=== PATIENT | male | born 1930 | race Caucasian/White ===

== ENCOUNTER → 2016-07-23 | Outpatient (CLI) | payer MEDICARE, OTHER ==
[~2016-07-23] MED LIST: ASPI-586 PO; ATEN100T PO; ATOR10TA66 PO; CHOL20002 PO; DOCU100T7 PO; FINA5TAB6 PO; GLUC-219 PO; HYDR25TA4 PO; MULT-646 PO; OMG1KC PO; TRAM50TA2 PO
--- NOTE | 2016-07-23 15:34 | Diagnostic Imaging Report ---
AP, oblique, and lateral views of each knee. INDICATION: Bilateral knee pain. FINDINGS: The left knee demonstrates moderate narrowing of the joint space in the lateral compartment and tricompartment osteophyte formation. The lateral projection demonstrates prominent osteophytes. There is no significant effusion. No acute fracture or dislocation. No radiopaque foreign body. The right knee demonstrates mild chondrocalcinosis. There is mild narrowing of the joint space in the medial compartment. Less prominent osteophyte formation is seen overall in the right knee compared to the left. IMPRESSION: Bilateral degenerative changes more prominent in the left knee particularly at the lateral and patellofemoral compartments. Findings of chondrocalcinosis in the right knee. Dictated by: Dictated on workstation # [id number]
--- NOTE | 2016-07-23 16:01 | Diagnostic Imaging Report ---
INDICATION: Bilateral knee and hip pain. EXAM: AP pelvis and bilateral hip radiographs. FINDINGS: No fracture, dislocation, or radiopaque foreign body. Severe degenerative changes of the hip joints seen. Advanced degenerative changes in the lower lumbar spine discs. The SI joints demonstrate mild degenerative changes. The right hip demonstrates near complete loss of cartilage with [id number] appearance with subchondral sclerosis and lucency secondary to advanced degenerative changes with possible superimposed avascular necrosis. Similar findings in the left hip seen. No acute fracture, dislocation, or radiopaque foreign body noted. 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 Dictated by: Dictated on workstation # [id number]
== END ==
LOC: RAD 09:31
PROVIDERS: ATTEND Internal Medicine
DX: M17.0 Bilateral primary osteoarthritis of knee (principal); M11.261 Other chondrocalcinosis, right knee
CPT/HCPCS: 73523

== ENCOUNTER → 2016-08-02 | Outpatient (CLI) | payer MEDICARE, OTHER ==
[~2016-08-02] MED LIST changes: +GADOBUTROL 10 MMOL/10 ML (GADAVIST) VIAL IV ONE
--- NOTE | 2016-08-02 17:28 | Diagnostic Imaging Report ---
PROCEDURE: MRI lumbar spine with and without contrast. TECHNIQUE: Multiplanar, multisequence MRI of the lumbar spine was performed with and without contrast. INDICATION: Chronic low back pain with bilateral knee pain. No known traumatic injury or history of surgery or cancer. COMPARISON: No comparison is available. FINDINGS: There is a dextroscoliotic curvature demonstrated of the thoracic spine with its apex at approximately the L3 level. The sagittal acquisition demonstrates slight retrolisthesis of L5 on S1 and anterolisthesis of L4 on 5. Advanced multilevel degenerative endplate changes present throughout the lower thoracic and lumbar spine with advanced disc space height loss at all levels. There is no marrow edema to suggest an acute osseous injury or underlying neoplastic lesion. Multilevel facet arthropathy is also present. There are advanced chronic degenerative endplate changes. The lower thoracic cord demonstrates no signal abnormality or abnormal expansion. The conus terminates at a normal level. T12-L1 demonstrates mild disc bulging with mild narrowing of the central canal. There is no significant left lateral recess stenosis. There is mild narrowing of the right neural foramen. At L1-2, diffuse disc bulge, facet arthropathy and ligamentous thickening result in moderate to severe central canal and lateral recess stenosis. There is moderate bilateral foraminal stenosis. At the L2-3 level, diffuse disc bulging, endplate spurring, facet arthropathy and ligamentous thickening result in severe central canal and lateral recess stenosis. There is mild right and moderate to severe left neural foraminal stenosis. At the L3-4 level, diffuse disc bulging, facet arthropathy and ligamentous thickening result in moderate central canal stenosis and severe narrowing of the lateral recesses. There is moderate to severe bilateral foraminal stenosis. At the L4-5 level, there is diffuse disc bulging as well as advanced facet arthropathy and ligamentous thickening with severe central canal stenosis and severe narrowing of both lateral recesses. There is moderate to severe right and moderate left neural foraminal stenosis. At the L5-S1 level, there is advanced facet arthropathy and ligamentous thickening. There is diffuse disc bulging. There is no significant central canal stenosis but there is moderate to severe narrowing of the lateral recesses. There is moderate left and moderate to severe right neural foraminal stenosis. There is no focal paraspinal soft tissue abnormality. Kidneys appear nonobstructed. There are simple appearing bilateral renal cysts. The aorta appears normal in caliber. IMPRESSION: 1. Dextroscoliosis with multiple levels of spinal listhesis. No acute osseous abnormality is demonstrated. The vertebral body heights appear maintained. 2. Advanced multilevel degenerative disc disease and facet arthropathy with advanced chronic degenerative endplate changes. 3. Multiple levels of high-grade central canal, lateral recess or neural foraminal stenosis are demonstrated throughout the lumbar spine. These are each described above level by level. Dictated by: Dictated on workstation # [id number]
== END ==
LOC: RAD 15:51
PROVIDERS: ATTEND Nurse Practitioner
DX: M48.06 Spinal stenosis, lumbar region (principal); M51.36 Other intervertebral disc degeneration, lumbar region
CPT/HCPCS: 72158

== ENCOUNTER 2016-08-17 13:11 | Inpatient (IN) | payer MEDICARE ==
[~2016-08-17] VITALS: Ht 188 cm; Wt 79.5 kg
[2016-08-17 13:37] LABS: BASOPHILS % (AUTO) 0 % (0-10); EOSINOPHILS # (AUTO) 0.1 10^3/uL (0.0-0.3); EOSINOPHILS % (AUTO) 1 % (0-10); LYMPHOCYTES # (AUTO) 0.6 X 10^3 (1.0-4.0); LYMPHOCYTES % (AUTO) 6 % (12-44); MEAN CORPUSCULAR HEMOGLOBIN 33 PG (25-34); MEAN CORPUSCULAR HGB CONC 35 G/DL (32-36); MEAN CORPUSCULAR VOLUME 94 FL (80-99); MEAN PLATELET VOLUME 8.7 FL (7.4-10.4); MONOCYTES # (AUTO) 1.3 X 10^3 (0.0-1.0); MONOCYTES % (AUTO) 13 % (0-12); NEUTROPHILS # (AUTO) 7.9 X 10^3 (1.8-7.8); NEUTROPHILS % (AUTO) 80 % (42-75); PLATELET COUNT 353 10^3/uL (130-400); RED BLOOD COUNT 3.52 10^6/uL (4.35-5.85); RED CELL DISTRIBUTION WIDTH 11.6 % (10.0-14.5); WHITE BLOOD COUNT 9.8 10^3/uL (4.3-11.0)
[2016-08-17] MEDS ORDERED: ATEN100T PO (13:38)
[2016-08-17] MEDS ORDERED: ATOR10TA66 PO (13:38)
[2016-08-17] MEDS ORDERED: FINA5TAB6 PO (13:38)
[2016-08-17] MEDS ORDERED: HYDR25TA4 PO (13:38)
[2016-08-17] MEDS ORDERED: TRAM50TA2 PO (13:38)
--- NOTE | 2016-08-17 13:39 | ED General ---
General Chief Complaint: Altered Mental Status Stated Complaint: CONFUSION Nursing Triage Note: PT TO ED ROOM 2 W FAMILY STATES PT HAS BEEN HAVING PERIODS OF CONFUSION, SMELLS OF URINE, HAS GONE [place], FROM DRIVING TO NOT BEING ABLE TO CARE FOR SELF Nursing Sepsis Screen: No Definite Risk Source of Information: Patient, Family Exam Limitations: No Limitations History of Present Illness Time Seen by Provider: 13:37 Initial Comments 85-year-old male patient presents to the emergency Department with reports of increased confusion over the last 3 weeks. 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 Patient over the last 3 weeks has had a progressive decline. Now unable to care for himself. Needs assistance to transfer. Family reports they found him twice playing on the floor naked in his house with patient under where of how long he had been there how he had gotten there. They've noted that he has been more confused over the last 3 weeks as well. Patient has seen Dr. Zelaya the last 3 weeks for low back pain with MRI and referral to Dr. Pierce. Patient is supposed to be seeing Dr. Pierce for epidural injection as an outpatient. Denies known falls , headache, dizziness, chest pain, shortness of air. Patient was constipated from tramadol, but took several laxatives causing diarrhea. Patient was started on Neurontin last Friday, but son states patient only took a few days before stopping it. Family felt this was may be causing some of his confusion. Patient today complains of bilateral hip/groin pain and knee pain. Timing/Duration: Other (3 week onset, worse over the last week) Modifying Factors: worse with Movement (left hip pain worse with movement) Allergies and Home Medications Allergies Coded Allergies: No Known Drug Allergies (Unverified , 08/17/16) Home Medications Aspirin 81 Mg Tablet., 81 MG PO DAILY, (Reported) Atenolol 100 Mg Tablet, 100 MG PO DAILY, (Reported) Atorvastatin Calcium 10 Mg Tablet, 5 MG PO DAILY, (Reported) TAKES 1/2 PILL Cholecalciferol (Vitamin D3) 2,000 Unit Capsule, 2,000 UNIT PO DAILY, (Reported) Docusate Sodium 100 Mg Tablet, 100 MG PO TID, (Reported) Finasteride 5 Mg Tablet, 5 MG PO DAILY, (Reported) Glucosamine/D3/Boswellia Ute 1 Each Tablet, 2 EACH PO BID, (Reported) Hydrochlorothiazide 25 Mg Tablet, 25 MG PO DAILY, (Reported) Multivits,Th W-Fe,Other Min 1 Each Tablet, 2 EACH PO DAILY, (Reported) [place] 3 Polyunsat Fatty Acids 1,000 Mg Cap, 1,000 MG PO DAILY, (Reported) Tramadol HCl 50 Mg Tablet, 100 MG PO Q6H PRN for PAIN, #60 (Reported) TAKES 2 (50MG) TABS Constitutional: see HPI, No chills, No diaphoresis, No dizziness, No fever, No malaise, weakness EENTM: no symptoms reported Respiratory: No cough, No short of breath Cardiovascular: No chest pain, edema, No palpitations, No syncope Gastrointestinal: see HPI, No abdominal pain, No nausea, No vomiting Genitourinary: No decreased output, No dysuria, No frequency, No hematuria, pain (bilateral groin pain with left greater than right) Musculoskeletal: see HPI, back pain, joint pain, No joint swelling, No neck pain Skin: no symptoms reported Psychiatric/Neurological: See HPI, Denies Headache, Denies Numbness, Denies Paresthesia, Denies Seizure, Denies Tingling, Denies Weakness All Other Systems Reviewed Negative Unless Noted: Yes (Negative excepted noted.) Past Cunxohl-Oqllnk-Nrawex Hx Patient Social History Recent Foreign Travel: No Contact w/Someone Who Travel: No Recent Infectious Disease Expo: No Respiratory Hx Respiratory Disorders: No Cardiovascular Hx Cardiac Disorders: Yes Cardiac Disorders: High Cholesterol, Hypertension Neurological Hx Neurological Disorders: No Genitourinary Hx Genitourinary Disorders: No Gastrointestinal Hx Gastrointestinal Disorders: No Musculoskeletal Hx Musculoskeletal Disorders: Yes Musculoskeletal Disorders: Chronic Back Pain Endocrine Hx Endocrine Disorders: No HEENT HX ENT Disorders: No Reviewed Nursing Assessment Reviewed/Agree w Nursing PMH: Yes Family Medical History Significant Family History: No Pertinent Family Hx Physical Exam Vital Signs Vital Sign - Last 12Hours 08/17/16 08/17/16 13:15 18:00 Temp 97.4 Pulse 74 Resp 18 B/P (MAP) 140/69 Pulse Ox 96 O2 Delivery Room Air Capillary Refill : Less Than 3 Seconds General Appearance: No Apparent Distress, Chronically ill Eyes: Bilateral Eye EOMI, Bilateral Eye Normal Inspection, Bilateral Eye PERRL HEENT: PERRL/EOMI, Pharynx Normal Neck: Normal Inspection, Supple Respiratory: Lungs Clear, Normal Breath Sounds, No Respiratory Distress Cardiovascular: Regular Rate, Rhythm, No Murmur Gastrointestinal: Normal Bowel Sounds, No Organomegaly, Non Tender, Soft, No Distended Back: Normal Inspection Extremity: Normal Capillary Refill, No Calf Tenderness, Pedal Edema (2+ pedal edema to the mid leg bilaterally.) Neurologic/Psychiatric: Alert, Oriented x3 ((family reports patient has been very confused. patient is Oriented x4 on exam).), No Motor/Sensory Deficits, Normal Mood/Affect, hotel associate II-XII Norm as Tested Skin: Normal Color, Warm/Dry Focused Exam Lactic Acid Level Progress/Results/Core Measures Results/Orders Lab Results Laboratory Tests Test 08/17/16 13:28 08/17/16 14:42 Range/Units White Blood Count 9.8 4.3-11.0 10^3/uL Red Blood Count 3.52 L 4.35-5.85 10^6/uL Hemoglobin 11.6 L 13.3-17.7 G/DL Hematocrit 33 L 40-54 % Mean Corpuscular Volume 94 80-99 FL Mean Corpuscular Hemoglobin 33 25-34 PG Mean Corpuscular Hemoglobin Concent 35 32-36 G/DL Red Cell Distribution Width 11.6 10.0-14.5 % Platelet Count 353 130-400 10^3/uL Mean Platelet Volume 8.7 7.4-10.4 FL Neutrophils (%) (Auto) 80 H 42-75 % Lymphocytes (%) (Auto) 6 L 12-44 % Monocytes (%) (Auto) 13 H 0-12 % Eosinophils (%) (Auto) 1 0-10 % Basophils (%) (Auto) 0 0-10 % Neutrophils # (Auto) 7.9 H 1.8-7.8 X 10^3 Lymphocytes # (Auto) 0.6 L 1.0-4.0 X 10^3 Monocytes # (Auto) 1.3 H 0.0-1.0 X 10^3 Eosinophils # (Auto) 0.1 0.0-0.3 10^3/uL Basophils # (Auto) 0.0 0.0-0.1 10^3/uL Neutrophils % (Manual) 77 % Lymphocytes % (Manual) 10 % Monocytes % (Manual) 12 % Eosinophils % (Manual) 1 % Blood Morphology Comment NORMAL Prothrombin Time 15.0 H 12.2-14.7 SEC INR Comment 1.2 0.8-1.4 Activated Partial Thromboplast Time 36 H 24-35 SEC Sodium Level 121 *L 135-145 MMOL/L Potassium Level 3.2 L 3.6-5.0 MMOL/L Chloride Level 86 L 98-107 MMOL/L Carbon Dioxide Level 23 21-32 MMOL/L Anion Gap 12 5-14 MMOL/L Blood Urea Nitrogen 14 7-18 MG/DL Creatinine 0.68 0.60-1.30 MG/DL Estimat Glomerular Filtration Rate > 60 BUN/Creatinine Ratio 21 Glucose Level 113 H 70-105 MG/DL Lactic Acid Level 0.95 0.50-2.00 MMOL/L Calcium Level 8.4 L 8.5-10.1 MG/DL Magnesium Level 1.5 L 1.8-2.4 MG/DL Total Bilirubin 1.3 H 0.1-1.0 MG/DL Aspartate Amino Transf (AST/SGOT) 39 H 5-34 U/L Alanine Aminotransferase (ALT/SGPT) 25 0-55 U/L Alkaline Phosphatase 87 40-136 U/L Troponin I < 0.30 <0.30 NG/ML Total Protein 6.2 L 6.4-8.2 G/DL Albumin 3.2 3.2-4.5 G/DL TSH [place] Testing 0.71 0.35-4.94 UIU/ML Urine Color YELLOW Urine Clarity SLIGHTLY CLOUDY Urine pH 7 5-9 Urine Specific [place] 1.010 L 1.016-1.022 Urine Protein NEGATIVE NEGATIVE Urine Glucose (UA) NEGATIVE NEGATIVE Urine Ketones NEGATIVE NEGATIVE Urine Nitrite NEGATIVE NEGATIVE Urine Bilirubin NEGATIVE NEGATIVE Urine Urobilinogen NORMAL NORMAL MG/DL Urine Leukocyte Esterase NEGATIVE NEGATIVE Urine RBC (Auto) 1+ H NEGATIVE Urine RBC 2-5 H /HPF Urine WBC NONE /HPF Urine Squamous Epithelial Cells RARE /HPF Urine Crystals NONE /LPF Urine Bacteria NONE /HPF Urine Casts NONE /LPF Urine Mucus NEGATIVE /LPF Urine Culture Indicated NO My Orders Orders - PEPE MOSELEY Cbc With Automated Diff (08/17/16 13:14) Comprehensive Metabolic Panel (08/17/16 13:14) Protime With Inr (08/17/16 13:14) Partial Thromboplastin Time (08/17/16 13:14) Thyroid Analyzer (08/17/16 13:14) Troponin I (08/17/16 13:14) Ua Culture If Indicated (08/17/16 13:14) Saline Lock/Iv-Start (08/17/16 13:14) Ekg Tracing (08/17/16 13:14) Monitor-Rhythm Ecg Trace Only (08/17/16 13:14) Ct Head Wo (08/17/16 13:14) Chest 1 View, Ap/Pa Only (08/17/16 13:14) Magnesium (08/17/16 13:14) Lactic Acid Analyzer (08/17/16 13:32) Blood Culture (08/17/16 13:32) Pelvis (08/17/16 13:40) Femur, Bilateral, 2 Views (08/17/16 13:40) Manual Differential (08/17/16 13:28) Ns Iv 1000 Ml (Sodium Chloride 0.9%) (08/17/16 14:10) Potassium Cl 10meq/50ml Ivpb (Kcl 10 Meq (08/17/16 14:15) Magnesium 1 Gm/100 Ml Ivpb (Magnesium [place] (08/17/16 14:15) Fentanyl Injection (Sublimaze Injection (08/17/16 14:46) Morphine Injection (Morphine Injection (08/17/16 15:16) Ct Chest W (08/17/16 15:37) Iohexol Injection (Omnipaque 350 Mg/Ml 1 (08/17/16 15:45) Ns (Ivpb) (Sodium Chloride 0.9% Ivpb Bag (08/17/16 15:45) Medications Given in ED Current Medications Medications Dose Ordered Sig/Matteo Route Start Time Stop Time Status Last Admin Dose Admin Iohexol 100 ml ONCE ONCE IV 08/17/16 15:45 08/17/16 15:46 DC 08/17/16 16:02 75 ML Magnesium Sulfate/ Dextrose 100 ml @ 100 mls/hr ONCE ONCE IV 08/17/16 14:15 08/17/16 15:14 DC 08/17/16 14:36 100 MLS/HR Potassium Chloride 50 ml @ 50 mls/hr ONCE ONCE IV 08/17/16 14:15 08/17/16 15:14 DC 08/17/16 14:33 50 MLS/HR Sodium Chloride 100 ml ONCE ONCE IV 08/17/16 15:45 08/17/16 15:46 DC 08/17/16 16:03 80 ML Sodium Chloride 1,000 ml @ 0 mls/hr Q0M ONCE IV 08/17/16 14:10 08/17/16 14:12 DC 08/17/16 14:31 1,000 MLS/HR Vital Signs/I&O Vital Sign - Last 12Hours 08/17/16 08/17/16 08/17/16 08/17/16 13:15 17:53 18:00 20:00 Temp 97.4 97.4 97.8 Pulse 74 70 65 70 Resp 18 18 18 18 B/P (MAP) 140/69 121/60 116/54 Pulse Ox 96 97 96 97 O2 Delivery Room Air Room Air 08/17/16 08/17/16 20:25 21:00 Pulse 60 O2 Delivery Room Air Blood Pressure Mean: 92 ECG Initial ECG Impression Date: Aug 17, 2016 Initial ECG Impression Time: 13:22 Initial ECG Rate: 76 Comment sinus rhythm with LBBB. ECG reviewed and discussed with Dr. Valentin. Diagnostic Imaging Diagonstic Imaging: CT Plain Films/CT/US/NM/MRI: head Comments FINDINGS: There is global cerebral volume loss present which is appropriate for age. There are advanced background chronic microvascular ischemic changes present within the white matter. There is also very low density within the right anterior limb of the internal capsule suggesting a previous infarct. Its low density would suggest that this is likely chronic. There is no territorial loss of zimmer-white differentiation evident. There is no mass effect. There is no hydrocephalus. There is no evidence of an abnormal extra-axial fluid collection. Basilar cisterns patent. The posterior fossa demonstrates no acute abnormalities. There are atherosclerotic calcifications of the vessels at the skull base. Mastoids clear. Paranasal sinuses clear. Orbital contents unremarkable. IMPRESSION: 1. Advanced global volume loss with background chronic microvascular changes within the white matter. 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 There is no territorial loss of zimmer-white differentiation demonstrated. If continued clinical concern, further evaluation could be performed with MRI if clinically applicable. Dictated on workstation # [id number] Reviewed: Reviewed by Me (radiology report reviewed by me) Diagonstic Imaging: Xray Plain Films/CT/US/NM/MRI: chest Comments FINDINGS: Single frontal view of the chest is obtained. Heart size is normal. The pulmonary vessels appear unremarkable. There is no pneumothorax or pleural fluid. There are somewhat masslike opacity seen lateral to the taqueria bilaterally which could represent airspace disease although ill-defined nodules could have this appearance as well. The lungs are otherwise clear. IMPRESSION: There are ill-defined somewhat masslike opacities lateral to the taqueria bilaterally. This could represent pneumonia however, is nonspecific. In the absence of acute infectious symptoms CT scan might be considered to exclude underlying neoplasm. Dictated by: Dictated on workstation # [id number] Reviewed: Reviewed by Me (radiology report reviewed by me) Diagonstic Imaging: Xray Plain Films/CT/US/NM/MRI: pelvis Comments FINDINGS: Single frontal view of the pelvis is obtained. As seen on the prior study, there are severe advanced degenerative changes of both hips with complete joint space loss, considerable subchondral sclerosis and cystic change bilaterally. There is some flattening of the femoral head on the left which is increased from the prior study concerning for an additional element of osteonecrosis here. Sacroiliac joints appear unremarkable. No acute fracture seen. There are degenerative changes in the spine. IMPRESSION: Severe degenerative changes of both hips persist with some new flattening of the left femoral head concerning for worsening osteonecrosis. No acute fracture is seen. Dictated by: Dictated on workstation # [id number] Reviewed: Reviewed by Me (radiology report reviewed by me) Diagonstic Imaging: Xray Plain Films/CT/US/NM/MRI: other (bilateral femur) Comments FINDINGS: 2 views of both femurs are obtained. There are severe degenerative changes of the hips bilaterally. No acute fracture or malalignment is seen. No osseous destructive process is seen. There is mild degenerative spurring of the patellofemoral joint bilaterally. IMPRESSION: Severe degenerative changes of the hip and mild degenerative changes of the knee. No acute osseous abnormality is suspected. Dictated by: Dictated on workstation # [id number] Diagonstic Imaging: CT Plain Films/CT/US/NM/MRI: chest Comments CT chest with chronic interstitial changes without evidence of mass or infiltrate. No acute cardiopulmonary abnormality noted. Right renal lesion noted with recommendations for outpatient renal ultrasound or CT scan abdomen/ pelvis. Reviewed: Discussed w/Radiologist (discussed with Dr. Madelyn Stuart) Departure Communication Time/Spoke to Admitting Phy: 16:[address] Phillips accepts patient to his internal medicine service for IVF, electrolyte replacement and further evaluation. Progress Notes Patient's family evaluated. All laboratory findings and diagnostic study findings were discussed with the patient and family. CT scan of the chest was obtained at the recommendation of the radiologist to further evaluate the taqueria for mass versus infiltrate. No acute cardiopulmonary findings were noted. Plan for admission was discussed with the patient and family. All voiced understanding. The treatment plan. Case discussed with Dr. Valentin, he agrees with the plan of care. Impression Impression: Primary Impression: Acute hyponatremia Additional Impressions: Hypokalemia Hypomagnesemia Altered mental status Qualified Codes: R41.82 - Altered mental status, unspecified Left hip pain Disposition: ADMITTED INPATIENT Condition: Stable Decision to Admit Reason: Admit from ER (General) Decision to Admit/Date: Aug 17, 2016 Time/Decision to Admit Time: 16:43 Departure-Patient Inst. Referrals: RUSTY STUART MD (PCP/Family) Primary Care Physician PEPE MOSELEY Aug 17, 2016 13:38
[2016-08-17 13:53] LABS: INR 1.2 (0.8-1.4)
[2016-08-17 13:54] LABS: EOSINOPHILS % (MANUAL) 1 %; LYMPHOCYTES % (MANUAL) 10 %; NEUTROPHILS % (MANUAL) 77 %
[2016-08-17 14:01] LABS: ALANINE AMINOTRANSFERASE 25 U/L (0-55); ALBUMIN 3.2 G/DL (3.2-4.5); ANION GAP 12 MMOL/L (5-14); ASPARTATE AMINO TRANSFERASE 39 U/L (5-34); BILIRUBIN,TOTAL 1.3 MG/DL (0.1-1.0); BLOOD UREA NITROGEN 14 MG/DL (7-18); BUN/CREATININE RATIO 21; CALCIUM 8.4 MG/DL (8.5-10.1); CARBON DIOXIDE 23 MMOL/L (21-32); CHLORIDE 86 MMOL/L (98-107); CREATININE SERUM 0.68 MG/DL (0.60-1.30); GFR ESTIMATED > 60; GLUCOSE 113 MG/DL (70-105); MAGNESIUM 1.5 MG/DL (1.8-2.4); POTASSIUM 3.2 MMOL/L (3.6-5.0); TOTAL PROTEIN 6.2 G/DL (6.4-8.2)
[2016-08-17 14:09] LABS: SODIUM 121 MMOL/L (135-145)
[2016-08-17] MEDS ORDERED: NS IV 1000 ML 1,000 ML IV ONE (14:10)
[2016-08-17] MEDS ORDERED: MAGNESIUM 1 GM/100 ML IVPB 100 ML IV ONE (14:15)
[2016-08-17] MEDS ORDERED: POTASSIUM CL 10MEQ/50ML IVPB 50 ML IV ONE (14:15)
[2016-08-17 14:21] LABS: TROPONIN I < 0.30 NG/ML (<0.30)
--- NOTE | 2016-08-17 14:40 | Diagnostic Imaging Report ---
INDICATION: Pain. COMPARISON: None FINDINGS: Single frontal view of the chest is obtained. Heart size is normal. The pulmonary vessels appear unremarkable. There is no pneumothorax or pleural fluid. There are somewhat masslike opacity seen lateral to the [place]qu[place] bilaterally which could represent airspace disease although ill-defined nodules could have this appearance as well. The lungs are otherwise clear. IMPRESSION: There are ill-defined somewhat masslike opacities lateral to the taqueria bilaterally. This could represent pneumonia however, is nonspecific. In the absence of acute infectious symptoms CT scan might be considered to exclude underlying neoplasm. Dictated by: Dictated on workstation # [id number]
--- NOTE | 2016-08-17 14:44 | Diagnostic Imaging Report ---
INDICATION: Pain. COMPARISON: None FINDINGS: 2 views of both femurs are obtained. There are severe degenerative changes of the hips bilaterally. No acute fracture or malalignment is seen. No osseous destructive process is seen. There is mild degenerative spurring of the patellofemoral joint bilaterally. IMPRESSION: Severe degenerative changes of the hip and mild degenerative changes of the knee. No acute osseous abnormality is suspected. Dictated by: Dictated on workstation # [id number]
[2016-08-17] MEDS ORDERED: fentaNYL INJECTION 100 MCG/2 ML AMP IVP STA (14:46)
[2016-08-17 14:57] LABS: BILIRUBIN,URINE NEGATIVE (NEGATIVE); KETONES,URINE NEGATIVE (NEGATIVE); LEUKOCYTE ESTERASE ,URINE NEGATIVE (NEGATIVE); NITRITE,URINE NEGATIVE (NEGATIVE); PH,URINE 7 (5-9); PROTEIN,URINE NEGATIVE (NEGATIVE); UROBILINOGEN,URINE NORMAL (NORMAL)
[2016-08-17 15:11] LABS: SQUAMOUS EPITHELIAL CELL,UR RARE /HPF
[2016-08-17] MEDS ORDERED: morphine INJ 10 MG/ML 1ML (SYR OR VIAL) IVP STA (15:16)
[2016-08-17] MEDS ORDERED: IOHEXOL 350 MG/ML 100 ML (OMNIPAQUE 350) VIAL IV ONE (15:45)
[2016-08-17] MEDS ORDERED: NS 100 ML (IVPB) BAG IV ONE (15:45)
--- NOTE | 2016-08-17 16:13 | Diagnostic Imaging Report ---
PROCEDURE: CT head without contrast. TECHNIQUE: Multiple contiguous axial images were obtained through the brain without the use of intravenous contrast. INDICATION: Confusion. FINDINGS: There is global cerebral volume loss present which is appropriate for age. There are advanced background chronic microvascular ischemic changes present within the white matter. There is also very low density within the right anterior limb of the internal capsule suggesting a previous infarct. Its low density would suggest that this is likely chronic. There is no territorial loss of zimmer-white differentiation evident. There is no mass effect. There is no hydrocephalus. There is no evidence of an abnormal extra-axial fluid collection. Basilar cisterns patent. The posterior fossa demonstrates no acute abnormalities. There are atherosclerotic calcifications of the vessels at the skull base. Mastoids clear. Paranasal sinuses clear. Orbital contents unremarkable. IMPRESSION: 1. Advanced global volume loss with background chronic microvascular changes within the white matter. 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 There is no territorial loss of zimmer-white differentiation demonstrated. If continued clinical concern, further evaluation could be performed with MRI if clinically applicable. Dictated by: Dictated on workstation # [id number]
--- NOTE | 2016-08-17 16:19 | Diagnostic Imaging Report ---
INDICATION: Pain. COMPARISON: 07/23/2016. FINDINGS: Single frontal view of the pelvis is obtained. As seen on the prior study, there are severe advanced degenerative changes of both hips with complete joint space loss, considerable subchondral sclerosis and cystic change bilaterally. There is some flattening of the femoral head on the left which is increased from the prior study concerning for an additional element of osteonecrosis here. Sacroiliac joints appear unremarkable. No acute fracture seen. There are degenerative changes in the spine. IMPRESSION: Severe degenerative changes of both hips persist with some new flattening of the left femoral head concerning for worsening osteonecrosis. No acute fracture is seen. Dictated by: Dictated on workstation # [id number]
--- NOTE | 2016-08-17 17:29 | Diagnostic Imaging Report ---
PROCEDURE: CT chest with contrast only. TECHNIQUE: Multiple contiguous axial images were obtained through the chest after administration of intravenous contrast. INDICATION: Possible pneumonia. Abnormal chest x-ray. COMPARISON: Chest x-ray from earlier the same date. FINDINGS: There are mild subpleural reticular interstitial changes in the lung bases and mild bilateral basilar atelectasis. No focal pneumonia is suspected. The densities seen on recent chest x-ray are likely due to some calcified pleural plaquing which is present most pronounced anteriorly in the chest. No pleural effusion or pneumothorax. No focal pneumonia is suspected. No adenopathy is seen. There is fluid within a slightly distended esophagus. There are cysts seen in the kidneys. On the right, there is an indeterminate 3.5-cm probably septated cyst in the posterior medial cortex which is indeterminate. Further evaluation with renal ultrasound or unenhanced and enhanced CT of the abdomen is recommended although this could be performed on a nonemergent basis. There are degenerative changes in the spine. IMPRESSION: 1. No focal pneumonia or mass is seen. The densities seen adjacent to the taqueria bilaterally are likely due to overlapping calcified pleural plaques. 2. There are mild chronic-appearing reticular interstitial changes with subpleural predominance. 3. The esophagus is mildly distended and fluid filled. 4. Indeterminate right renal cystic lesion. Followup with unenhanced and enhanced renal CT or renal ultrasound is recommended as neoplasm is not excluded. This could be done on a non emergent basis. Dictated by: Dictated on workstation # [id number]
[2016-08-17 18:00] VITALS: BP 121/60
[2016-08-17] MEDS ORDERED: ONDANSETRON 4 MG/2 ML (SDV) Z0FRAN IVP PRN (18:45)
[2016-08-17] MEDS ORDERED: ACETAMINOPHEN 325 MG TABLET/CAPLET (TYLENOL) PO PRN (18:45)
[2016-08-17] MEDS: NS W/KCL 20 MEQ/L 1,000 ML IV SCH (18:59)
[2016-08-17] MEDS: MAGNESIUM 1 GM/100 ML IVPB 100 ML IV SCH ×2 (18:59→20:24)
[2016-08-17] MEDS ORDERED: CHOL20002 PO (19:16)
[2016-08-17] MEDS ORDERED: MULT-646 PO (19:16)
[2016-08-17] MEDS ORDERED: GLUC-219 PO (19:16)
[2016-08-17] MEDS ORDERED: OMG1KC PO (19:16)
[2016-08-17] MEDS ORDERED: DOCU100T7 PO (19:16)
[2016-08-17] MEDS ORDERED: ASPI-586 PO (19:16)
[2016-08-17 20:00] VITALS: BP 116/54
[2016-08-18] VITALS: BP 114/55
[2016-08-18] MEDS: fentaNYL INJECTION 100 MCG/2 ML AMP IVP PRN ×3 (02:30→17:04)
[2016-08-18] MEDS: NS W/KCL 20 MEQ/L 1,000 ML IV SCH ×4 (03:51→23:28)
[2016-08-18 04:00] VITALS: BP 123/61
[2016-08-18 04:56] LABS: BASOPHILS % (AUTO) 0 % (0-10); EOSINOPHILS # (AUTO) 0.1 10^3/uL (0.0-0.3); EOSINOPHILS % (AUTO) 1 % (0-10); LYMPHOCYTES # (AUTO) 0.5 X 10^3 (1.0-4.0); LYMPHOCYTES % (AUTO) 7 % (12-44); MEAN CORPUSCULAR HEMOGLOBIN 33 PG (25-34); MEAN CORPUSCULAR HGB CONC 36 G/DL (32-36); MEAN CORPUSCULAR VOLUME 94 FL (80-99); MEAN PLATELET VOLUME 8.4 FL (7.4-10.4); MONOCYTES # (AUTO) 1.1 X 10^3 (0.0-1.0); MONOCYTES % (AUTO) 14 % (0-12); NEUTROPHILS # (AUTO) 5.8 X 10^3 (1.8-7.8); NEUTROPHILS % (AUTO) 78 % (42-75); PLATELET COUNT 353 10^3/uL (130-400); RED BLOOD COUNT 3.44 10^6/uL (4.35-5.85); RED CELL DISTRIBUTION WIDTH 11.5 % (10.0-14.5); WHITE BLOOD COUNT 7.5 10^3/uL (4.3-11.0)
[2016-08-18 05:20] LABS: ALANINE AMINOTRANSFERASE 25 U/L (0-55); ALBUMIN 2.9 G/DL (3.2-4.5); ANION GAP 8 MMOL/L (5-14); ASPARTATE AMINO TRANSFERASE 35 U/L (5-34); BILIRUBIN,TOTAL 1.2 MG/DL (0.1-1.0); BLOOD UREA NITROGEN 8 MG/DL (7-18); BUN/CREATININE RATIO 13; CALCIUM 8.2 MG/DL (8.5-10.1); CARBON DIOXIDE 27 MMOL/L (21-32); CHLORIDE 97 MMOL/L (98-107); CREATININE SERUM 0.64 MG/DL (0.60-1.30); GFR ESTIMATED > 60; GLUCOSE 96 MG/DL (70-105); MAGNESIUM 1.8 MG/DL (1.8-2.4); POTASSIUM 3.3 MMOL/L (3.6-5.0); SODIUM 132 MMOL/L (135-145); TOTAL PROTEIN 5.7 G/DL (6.4-8.2)
[2016-08-18 07:59] VITALS: BP 134/60
[2016-08-18] MEDS ORDERED: KCL 8 MEQ (MICRO K) TABLET PO NR (08:30)
[2016-08-18] MEDS: CELECOXIB 100 MG (CeleBREX) CAP PO SCH ×2 (09:33→20:14)
--- NOTE | 2016-08-18 10:08 | History & Physical-Hospitalist ---
HPI History of Present Illness: HPI/Chief Complaint Mr. Lee brought into the emergency room by family members reporting increased confusion. He was found on the floor uninjured without close on not making any sense. He's been having problems with groin pain radiating to the knee felt the upper lumbar radicular source and had been scheduled to see Dr. Pierce for epidural injection this coming week. He had several doses of gabapentin earlier in the week but it been several days since his last doses they felt that was contributing to his confusion. There are no narcotics listed on his medications. Due to patient confusion were unable to obtain a history directly from the patient. He was noted to have hyponatremia with a sodium level of 121 and hypomagnesemia. He was admitted for treatment of his confusion electrolyte disturbance. He was pleasant upon arrival this morning but was concerned that the female one-on-one sitter in his room was their decision do some as a date and he was too old for her. He reported currently in the supine position his back pain was better rating it a 3 out of 10. Date Seen 08/18/16 Attending Physician Chemo Crawford MD PCP Chemo Crawford MD Referring Physician Date of Admission Aug 17, 2016 at 16:54 Home Medications & Allergies Home Medications Reviewed patient Home Medication Reconciliation Form Allergies Allergies Coded Allergies No Known Drug Allergies (Unverified08/17/16) Past Stbtoup-Aoeybx-Mttwib Hx Patient Social History Alcohol Use: Denies Use Recreational Drug Use: No Smoking Status: Never a Smoker Physical Abuse Screen: No Sexual Abuse: No Recent Foreign Travel: No Contact w/other who traveled: No Recent Hopitalizations: No Recent Infectious Disease Expo: No Immunizations Up To Date Date of Pneumonia Vaccine: May 12, 2015 Seasonal Allergies Seasonal Allergies: No Surgeries HX Surgeries: No Respiratory Hx Respiratory Disorders: No Cardiovascular Hx Cardiovascular Disorders: Yes Cardiac Disorders: High Cholesterol, Hypertension Neurological Hx Neurological Disorders: No Genitourinary Hx Genitourinary Disorders: No Genitourinary Disorders: Prostate Problems Gastrointestinal Hx Gastrointestinal Disorders: No Musculoskeletal Hx Musculoskeletal Disorders: Yes Musculoskeletal Disorders: Arthritis Endocrine Hx Endocrine Disorders: No HEENT HX ENT Disorders: No Reviewed Nursing Assessment Reviewed/Agree w Nursing PMH: Yes Family Medical History Significant Family History: No Pertinent Family Hx Family Hx: Patient reports no known family medical history. Review of Systems Constitutional: No chills, No diaphoresis, No dizziness, No fever, No malaise, No weakness, No weight gain, No weight loss Respiratory: No cough, No dyspnea on exertion, No orthopnea, No phlegm, No short of breath, No stridor, No wheezing Gastrointestinal: No abdominal pain, No constipation, No diarrhea, No dysphagia , No hematemesis, No heartburn, No loss of appetite, No melena, No nausea, No vomiting Genitourinary: No dysuria, No frequency, No hematuria, No hesitancy, No incontinence Psychiatric/Neurological: Other (denies headache) Physical Exam Physical Exam Vital Signs Vital Sign - Last 12Hours 08/17/16 08/17/16 13:15 18:00 Temp 97.4 Pulse 74 Resp 18 B/P (MAP) 140/69 Pulse Ox 96 O2 Delivery Room Air Capillary Refill : Less Than 3 Seconds General Appearance: No Apparent Distress Neck: Full Range of Motion, Normal Inspection, Non Tender, Supple Respiratory: Chest Non Tender, Lungs Clear, Normal Breath Sounds, No Accessory Muscle Use, No Respiratory Distress Cardiovascular: Regular Rate, Rhythm, No Edema, No Gallop, No JVD, No Murmur, Normal Peripheral Pulses Gastrointestinal: Normal Bowel Sounds, No Organomegaly, No Pulsatile Mass, Non Tender, Soft Back: Normal Inspection, No CVA Tenderness, No Vertebral Tenderness Extremity: Normal Range of Motion, Non Tender, No Calf Tenderness, Other (2+ pedal and 1+ pretibial edema extremities are warm) Neurologic/Psychiatric: Alert, Other (oriented 1 moving all extremities and no focal weakness noted.) Results Results/Procedures Lab Laboratory Tests 08/17/16 13:28 08/18/16 04:35 Clinical Quality Measures DVT/VTE Risk/Contraindication: Risk Factor Score Per Nursin RFS Level Per Nursing on Admit: 4+=Very High MAGDALENA JEAN MD Aug 18, 2016 10:08
[2016-08-18 12:00] VITALS: BP 127/61
[2016-08-18 16:00] VITALS: BP 109/67
[2016-08-18 19:56] VITALS: BP 136/62
[2016-08-19] VITALS: BP 144/77
[2016-08-19] MEDS: NS W/KCL 20 MEQ/L 1,000 ML IV SCH ×2 (06:06→10:51)
[2016-08-19] MEDS: KCL 8 MEQ (MICRO K) TABLET PO SCH (06:45)
[2016-08-19 08:00] VITALS: BP 112/54
[2016-08-19 08:06] LABS: ANION GAP 7 MMOL/L (5-14); BLOOD UREA NITROGEN 7 MG/DL (7-18); BUN/CREATININE RATIO 12; CALCIUM 8.1 MG/DL (8.5-10.1); CARBON DIOXIDE 23 MMOL/L (21-32); CHLORIDE 101 MMOL/L (98-107); CREATININE SERUM 0.59 MG/DL (0.60-1.30); GFR ESTIMATED > 60; GLUCOSE 105 MG/DL (70-105); MAGNESIUM 1.6 MG/DL (1.8-2.4); SODIUM 131 MMOL/L (135-145)
[2016-08-19] MEDS: CELECOXIB 100 MG (CeleBREX) CAP PO SCH ×2 (09:53→20:04)
--- NOTE | 2016-08-19 11:02 | Progress Note-Hospitalist ---
Standard Progress Note Progress Notes/Assess & Plan Date Seen 08/19/16 Assess & Plan/Chief Complaint The patient is an 85-year-old white male. His son is in the room and reports that 3-4 weeks ago his father was suddenly and rapidly afflicted with back pain and loss of the ability to ambulate. It began first with a rather severe pain that caused him to limit his ambulation and to use a cane. Very shortly he had to use a walker and directly following that he was unable to stand and ambulate. He saw Dr. Naiton in [place]. He was started on gabapentin 300 mg twice a day. They noted an almost immediate change in his mentation and stopped them after 2 or 3 doses. That was about one week ago. He continued to be in pain and less alert. Dr. Nation arranged an appointment with a pain specialist in [place] which was to be towards the end of this month. He became totally dependent was brought to the emergency room. While there he was found to have a sodium of 121. The son states that yesterday he seemed to be improved however he had a bad night with confusion. He is pleasant at the time of review and has some rest of his situation. Physical exam: The patient is an elderly white male who appears cheerful. The lungs are clear to auscultation. CV is regular without murmur. Impression: Hyponatremia improving. 2.rather rapid onset of severe back pain. 3.hypertension. Plan: PT OT consults and discharge planning. Labs Laboratory Tests 08/17/16 13:28 08/18/16 04:35 08/19/16 07:20 LAZARO THOMAS MD Aug 19, 2016 11:02
--- NOTE | 2016-08-19 11:52 | Physical Therapy Evaluation ---
PT Evaluation-General Medical Diagnosis Admission Date Aug 17, 2016 at 16:54 Medical Diagnosis: hyponatremia/hypokalemia Onset Date: Aug 17, 2016 Therapy Diagnosis Therapy Diagnosis: generalized weakness and debility Height/Weight Height (Feet): 6 Height (Inches): 2.00 Weight (Pounds): 175 Weight (Ounces): 4.0 Precautions Precautions/Isolations: Fall Prevention, Standard Precautions Referral Physician: Alan Reason for Referral: Evaluation/Treatment Medical History Pertinent Medical History: Arthritis, HTN Additional Medical History chronic back pain with radicular pain bilateral LE's Current History ER per family secondary to increase in confusion x 3 wks; found on the floor at his home by family with no clothes on 3 wks prior, patient was independent with care and driving per family report Reviewed History: Yes Social History Home: Single Level Current Living Status: Alone Prior/Core FIM Prior Level of Function Functional [place] Measure 0=Not Assessed/NA 4=Minimal Assistance 1=Total Assistance 5=Supervision or Setup 2=Maximal Assistance 6=Modified [place] 3=Moderate Assistance 7=Complete [place] Bed Mobility: 7 Transfers (B,C,W/C) (FIM): 7 Gait: 7 Locomotion: 7 PT Evaluation-Current Subjective Patient is in bed and is confused. Pain Numeric Pain Scale: 4 Location: Lower Location Body Site: Back Pain Description: Chronic Objective Patient Orientation: Confused Problem Solving: Poor Attachments: IV ROM/Strength ROM Lower Extremities bilateral LE WFL Strenght Lower Extremities bilateral LE WFL Integumentary/Posture Integumentary refer to nursing notes Bladder Incontinence: No Posture kyphotic in sit and stand Neuromuscular (Tone, Coordination, Reflexes) diminished coordination Sensory Vision: Functional Hearing: Impaired Sensation Right Lower Extremit: Intact Sensation Left Lower Extremity: Intact Transfers Functional [place] Measure 0=Not Assessed/NA 4=Minimal Assistance 1=Total Assistance 5=Supervision or Setup 2=Maximal Assistance 6=Modified [place] 3=Moderate Assistance 7=Complete [place] Transfers (B, C, W/C) (FIM): 4 Scootin Rollin Supine to/from Sit: 5 Sit to/from Stand: 4 CGA with gait belt in place for safety Gait Mode of Locomotion: Walk Anticipated Mode of Locomotion: Walk Gait (FIM): 4 Distance (FIM): 3=150 ft Distance: 175' Gait Level of Assist: 4 Gait Persons Needed: 1 Gait Assistive Device: FWW Comments/Gait Description 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 male, will benefit from short term skilled PT to address functional strength and mobility to improve current LOF. Per family report, patient will dismiss to NH for continued care. Patient is limited cognitively and physically with all gross motor skills and is unable to appropriately follow simple direction. Rehab Potential: Fair Post Rehab Potential-Barriers: confusion PT Short Term Goals Short Term Goals Time Frame: Aug 23, 2016 Transfers (B,C,W/C) (FIM): 5 Gait (FIM): 5 Distance (FIM): 3=150 ft Gait Level of Assist: 5 Gait Assistive Device: FWW PT Plan Problem List Problem List: Activity Tolerance, Functional Strength, Safety, Gait Treatment/Plan Treatment Plan: Continue Plan of Care Treatment Plan: Bed Mobility, Education, Functional Activity Lupe, Functional Strength, Gait, Safety, Therapeutic Exercise, Transfers Treatment Duration: Aug 23, 2016 # of days/week 5 Visits Per Week: 5 Pt/Family Agrees w/Plan: Yes Safety Risks/Education Patient Education: Safety Issues Teaching Recipient: Patient, Family Teaching Methods: Discussion Response to Teaching: Verbalize Understanding (family ), Reinforcement Needed ( patient) Discharge Recommendations Therapy D/C Recommendations: Skilled Nursing Placement, Longterm (TCU/NH) Time/GCodes Time In: 1020 Time Out: 1030 Total Billed Treatment Time: 10 Total Billed Treatment 1 visit EVLowC 10 min G Codes Necessary: URSULA Bingham PT Aug 19, 2016 11:52
[2016-08-19 16:33] VITALS: BP 132/66
[2016-08-20 00:04] VITALS: BP 148/75
[2016-08-20] MEDS: KCL 8 MEQ (MICRO K) TABLET PO SCH (06:01)
[2016-08-20 08:00] VITALS: BP 159/79
[2016-08-20] MEDS: CELECOXIB 100 MG (CeleBREX) CAP PO SCH (08:05)
--- NOTE | 2016-08-20 11:14 | Progress Note-Hospitalist ---
Standard Progress Note Progress Notes/Assess & Plan Date Seen 08/20/16 Assess & Plan/Chief Complaint The patient reports that he is feeling much better today. His daughter is in the room at the time of visit and reports that he is much better oriented and cognitively then he had been at admission. The plan for today is to [facility] for physical therapy and occupational therapy. He has a pain clinic appointment for the latter part of the month and they are keeping that open at the present. He has no other complaints. Physical exam: He is bright. He remembers my name from yesterday. Lungs are clear to auscultation. CV is regular without murmur. Extremities show no pedal edema. Impression: Hyponatremia resolved. 2.lumbar radiculopathy and disabling back pain. 3.hypertension. Plan: transfer to [facility]. PT and OT. Discontinue thiazide-containing antihypertensive. Labs Laboratory Tests 08/19/16 07:20 LAZARO THOMAS MD Aug 20, 2016 11:14
--- NOTE | 2016-08-20 11:18 | Discharge Inst-Skilled Nursing ---
Discharge Inst-Skilled NF Patient Instructions Patient Problems: 1.hyponatremia 2.hypertension 3.lumbar radiculopathy Goal: Improvement of pain and mobility Consult/Follow Up/Orders Follow Up Appt.: Keep pain clinic appointment Skilled NF Admit to: [facility] Certification (SNF) I certify that [facility] services are required to be given on an inpatient basis because of the above named patient's need for longterm care on a continuing basis for the conditions(s) for which he/she was receiving inpatient hospital services prior to his/her transfer to the SNF. y Halfway Facility Order: Industrial Truck Driver-Evaluate & Treat, Physical Therapy-Evaluate & Treat Discharge Diet: No Restrictions Daily Activity as Tolerated: Yes New & Resume Previous Orders Cale Thomas Aug 20, 2016 11:15 CALE THOMAS MD Aug 20, 2016 11:18
== END 2016-08-20 14:47 | DRG 641 ==
LOC: EDUNIT# 13:11 → ER 13:13 → 4TH 16:54
PROVIDERS: ADMIT Internal Medicine; ATTEND Internal Medicine
DX: E87.1 Hypo-osmolality and hyponatremia (principal); T50.2X5A Adverse effect of carbonic-anhydrase inhibitors, benzothiadiazides and other diuretics, initial encounter; M54.16 Radiculopathy, lumbar region; E78.00 Pure hypercholesterolemia, unspecified; E83.42 Hypomagnesemia; I10 Essential (primary) hypertension; M19.91 Primary osteoarthritis, unspecified site; N42.9 Disorder of prostate, unspecified
CPT/HCPCS: 36415; 70450; 71010; 71260; 72170; 80048; 80053; 81000; 83605; 83735; 84443; 84484; 85007; 85025; 85027; 85610; 85730; 87040; 93005; 93041; 96361; 96365; 96375

== ENCOUNTER 2016-11-23 10:21 | Observation (INO) | payer MEDICARE ==
[~2016-11-23] VITALS: Ht 188 cm; Wt 76.0 kg
[~2016-11-23 10:21] MED LIST changes: -GADOBUTROL 10 MMOL/10 ML (GADAVIST) VIAL IV ONE
[2016-11-23 11:22] LABS: BILIRUBIN,URINE NEGATIVE (NEGATIVE); KETONES,URINE NEGATIVE (NEGATIVE); LEUKOCYTE ESTERASE ,URINE NEGATIVE (NEGATIVE); NITRITE,URINE NEGATIVE (NEGATIVE); PH,URINE 8 (5-9); PROTEIN,URINE NEGATIVE (NEGATIVE); UROBILINOGEN,URINE 1 MG/DL (NORMAL)
[2016-11-23 12:13] LABS: BASOPHILS % (AUTO) 0 % (0-10); EOSINOPHILS # (AUTO) 0.1 10^3/uL (0.0-0.3); EOSINOPHILS % (AUTO) 1 % (0-10); LYMPHOCYTES # (AUTO) 0.6 X 10^3 (1.0-4.0); LYMPHOCYTES % (AUTO) 8 % (12-44); MEAN CORPUSCULAR HEMOGLOBIN 33 PG (25-34); MEAN CORPUSCULAR HGB CONC 34 G/DL (32-36); MEAN CORPUSCULAR VOLUME 98 FL (80-99); MEAN PLATELET VOLUME 8.9 FL (7.4-10.4); MONOCYTES # (AUTO) 1.3 X 10^3 (0.0-1.0); MONOCYTES % (AUTO) 17 % (0-12); NEUTROPHILS # (AUTO) 5.8 X 10^3 (1.8-7.8); NEUTROPHILS % (AUTO) 74 % (42-75); PLATELET COUNT 417 10^3/uL (130-400); RED BLOOD COUNT 3.86 10^6/uL (4.35-5.85); RED CELL DISTRIBUTION WIDTH 13.7 % (10.0-14.5); WHITE BLOOD COUNT 7.8 10^3/uL (4.3-11.0)
--- NOTE | 2016-11-23 12:29 | ED General ---
General Chief Complaint: Altered Mental Status Stated Complaint: FOGGY, BLOOD PANEL REQUESTED Nursing Triage Note: PT IS BROUGHT IN BY FAMILY WITH REPORTS OF CONFUSION AND WEAKNESS. FAMILY REPORTS THAT PT HAS BEEN TX SEVERAL TIMES FOR UTI'S RECENTLY. Nursing Sepsis Screen: No Definite Risk Source of Information: Patient, Family Exam Limitations: Other (confusion) History of Present Illness Time Seen by Provider: 11:45 Initial Comments This 86-year-old white male presents with weakness and confusion. The patient has had similar episodes in the past several months attributed to urinary tract infections. Patient has come from a care center brought to the emergency department by his family for evaluation. The patient has fallen over the last several months repeatedly. The patient has sustained to recent abrasions to his caput in the past few days. The patient's family deny associated fever, chills, vomiting, diarrhea, change in stools or associated black or tarry stools, headache, stiff neck, shortness of breath or cough, or change in medications. It is disconcerting that the patient has lost 40 pounds in the last 4 months. Allergies and Home Medications Allergies Coded Allergies: No Known Drug Allergies (Unverified , 08/17/16) Home Medications Atenolol 100 Mg Tablet, 100 MG PO DAILY, (Reported) Atorvastatin Calcium 10 Mg Tablet, 5 MG PO DAILY, (Reported) TAKES 1/2 PILL Docusate Sodium 100 Mg Tablet, 100 MG PO BID, (Reported) Finasteride 5 Mg Tablet, 5 MG PO DAILY, (Reported) [place] 3 Polyunsat Fatty Acids 1,000 Mg Cap, 1,000 MG PO DAILY, (Reported) Tramadol HCl 50 Mg Tablet, 100 MG PO Q6H PRN for PAIN, (Reported) TAKES 2 (50MG) TABS Constitutional: No chills, No fever, weakness EENTM: No eye pain, No hearing loss, No vision loss Respiratory: No cough Cardiovascular: No chest pain Gastrointestinal: No abdominal pain, No nausea, No vomiting, other (40 pound weight loss) Genitourinary: No dysuria, frequency Musculoskeletal: No back pain Skin: No change in color, No rash Psychiatric/Neurological: Denies Anxiety, Denies Depressed Hematologic/Lymphatic: No Symptoms Reported Immunological/Allergic: no symptoms reported Past Wldfofq-Uptnfa-Fqvgua Hx Patient Social History Alcohol Use: Denies Use Recreational Drug Use: No Smoking Status: Never a Smoker 2nd Hand Smoke Exposure: No Recent Foreign Travel: No Contact w/Someone Who Travel: No Recent Infectious Disease Expo: No Recent Hopitalizations: No Immunizations Up To Date Tetanus Booster (TDap): Unknown Date of Pneumonia Vaccine: May 12, 2015 Seasonal Allergies Seasonal Allergies: No Surgeries HX Surgeries: No Respiratory Hx Respiratory Disorders: No Cardiovascular Hx Cardiac Disorders: Yes Cardiac Disorders: High Cholesterol, Hypertension Neurological Hx Neurological Disorders: No Genitourinary Hx Genitourinary Disorders: No Genitourinary Disorders: Prostate Problems Gastrointestinal Hx Gastrointestinal Disorders: No Musculoskeletal Hx Musculoskeletal Disorders: Yes Musculoskeletal Disorders: Arthritis Endocrine Hx Endocrine Disorders: No HEENT HX ENT Disorders: No Reviewed Nursing Assessment Reviewed/Agree w Nursing PMH: Yes Family Medical History Significant Family History: No Pertinent Family Hx Family Medial History: Patient reports no known family medical history. Physical Exam Vital Signs Vital Sign - Last 12Hours 11/23/16 10:35 Temp 99.6 Pulse 73 Resp 16 B/P (MAP) 131/71 Pulse Ox 96 O2 Delivery Room Air Capillary Refill : Less Than 3 Seconds General Appearance: No Apparent Distress, WD/WN Eyes: Bilateral Eye Normal Inspection HEENT: Normal ENT Inspection Neck: Normal Inspection Respiratory: Lungs Clear Cardiovascular: Regular Rate, Rhythm Gastrointestinal: Normal Bowel Sounds Back: Normal Inspection Extremity: Normal Capillary Refill, Normal Inspection, Normal Range of Motion Neurologic/Psychiatric: Alert, Oriented x3, No Motor/Sensory Deficits Skin: Normal Color, Warm/Dry Focused Exam Lactic Acid Level Laboratory Tests Test 11/23/16 13:40 Progress/Results/Core Measures Results/Orders Lab Results Laboratory Tests Test 11/23/16 11:00 11/23/16 11:58 11/23/16 13:40 Range/Units Urine Color YELLOW Urine Clarity SLIGHTLY CLOUDY Urine pH 8 5-9 Urine Specific [place] 1.015 L 1.016-1.022 Urine Protein NEGATIVE NEGATIVE Urine Glucose (UA) NEGATIVE NEGATIVE Urine Ketones NEGATIVE NEGATIVE Urine Nitrite NEGATIVE NEGATIVE Urine Bilirubin NEGATIVE NEGATIVE Urine Urobilinogen 1 NORMAL MG/DL Urine Leukocyte Esterase NEGATIVE NEGATIVE Urine RBC (Auto) NEGATIVE NEGATIVE Urine RBC NONE /HPF Urine WBC NONE /HPF Urine Squamous Epithelial Cells NONE /HPF Urine Crystals NONE /LPF Urine Amorphous Sediment FEW DIAZ PHOSPHATE H /LPF Urine Bacteria NEGATIVE /HPF Urine Casts NONE /LPF Urine Mucus NEGATIVE /LPF Urine Culture Indicated NO White Blood Count 7.8 4.3-11.0 10^3/uL Red Blood Count 3.86 L 4.35-5.85 10^6/uL Hemoglobin 12.9 L 13.3-17.7 G/DL Hematocrit 38 L 40-54 % Mean Corpuscular Volume 98 80-99 FL Mean Corpuscular Hemoglobin 33 25-34 PG Mean Corpuscular Hemoglobin Concent 34 32-36 G/DL Red Cell Distribution Width 13.7 10.0-14.5 % Platelet Count 417 H 130-400 10^3/uL Mean Platelet Volume 8.9 7.4-10.4 FL Neutrophils (%) (Auto) 74 42-75 % Lymphocytes (%) (Auto) 8 L 12-44 % Monocytes (%) (Auto) 17 H 0-12 % Eosinophils (%) (Auto) 1 0-10 % Basophils (%) (Auto) 0 0-10 % Neutrophils # (Auto) 5.8 1.8-7.8 X 10^3 Lymphocytes # (Auto) 0.6 L 1.0-4.0 X 10^3 Monocytes # (Auto) 1.3 H 0.0-1.0 X 10^3 Eosinophils # (Auto) 0.1 0.0-0.3 10^3/uL Basophils # (Auto) 0.0 0.0-0.1 10^3/uL Sodium Level 134 L 135-145 MMOL/L Potassium Level 4.3 3.6-5.0 MMOL/L Chloride Level 97 L 98-107 MMOL/L Carbon Dioxide Level 28 21-32 MMOL/L Anion Gap 9 5-14 MMOL/L Blood Urea Nitrogen 10 7-18 MG/DL Creatinine 0.69 0.60-1.30 MG/DL Estimat Glomerular Filtration Rate > 60 BUN/Creatinine Ratio 14 Glucose Level 108 H 70-105 MG/DL Calcium Level 9.5 8.5-10.1 MG/DL Total Bilirubin 1.2 H 0.1-1.0 MG/DL Aspartate Amino Transf (AST/SGOT) 21 5-34 U/L Alanine Aminotransferase (ALT/SGPT) 15 0-55 U/L Alkaline Phosphatase 117 40-136 U/L C-Reactive Protein High Sensitivity 3.03 H 0.00-0.50 MG/DL Total Protein 7.4 6.4-8.2 GM/DL Albumin 3.8 3.2-4.5 GM/DL Lipase 13 8-78 U/L My Orders Orders - MAGDALENA ROMAN MD Ct Head Wo (11/23/16 11:48) Ct Chest/Abdomen/Pelvis W (11/23/16 11:48) Ekg Tracing (11/23/16 12:05) Lipase (11/23/16 12:05) Iohexol Injection (Omnipaque 350 Mg/Ml 1 (11/23/16 12:45) Ns (Ivpb) (Sodium Chloride 0.9% Ivpb Bag (11/23/16 12:45) Psa Screen (11/23/16 13:03) Blood Culture (11/23/16 13:03) Hs C Reactive Protein (11/23/16 13:03) Erythrocyte Sedimentation Rate (11/23/16 13:03) Lactic Acid Analyzer (11/23/16 13:03) Syphilis Antibody Screen (11/23/16 13:11) Saline Lock/Iv-Start (11/23/16 13:15) Fentanyl Injection (Sublimaze Injection (11/23/16 13:30) Medications Given in ED Current Medications Medications Dose Ordered Sig/Matteo Route Start Time Stop Time Status Last Admin Dose Admin Sodium Chloride 100 ml ONCE ONCE IV 11/23/16 12:45 11/23/16 12:46 DC 11/23/16 12:51 80 ML Vital Signs/I&O Vital Sign - Last 12Hours 11/23/16 10:35 Temp 99.6 Pulse 73 Resp 16 B/P (MAP) 131/71 Pulse Ox 96 O2 Delivery Room Air Blood Pressure Mean: 91 Departure Communication Time/Spoke to Admitting Phy: 13:[address] Smith Impression Impression: Primary Impression: Confusion Disposition: ADMITTED INPATIENT Condition: Unchanged Departure-Patient Inst. Referrals: RUSTY STUART MD (PCP/Family) Primary Care Physician MAGDALENA ROMAN MD Nov 23, 2016 12:29
[2016-11-23 12:34] LABS: ALANINE AMINOTRANSFERASE 15 U/L (0-55); ALBUMIN 3.8 GM/DL (3.2-4.5); ANION GAP 9 MMOL/L (5-14); ASPARTATE AMINO TRANSFERASE 21 U/L (5-34); BILIRUBIN,TOTAL 1.2 MG/DL (0.1-1.0); BLOOD UREA NITROGEN 10 MG/DL (7-18); BUN/CREATININE RATIO 14; CALCIUM 9.5 MG/DL (8.5-10.1); CARBON DIOXIDE 28 MMOL/L (21-32); CHLORIDE 97 MMOL/L (98-107); CREATININE SERUM 0.69 MG/DL (0.60-1.30); GFR ESTIMATED > 60; GLUCOSE 108 MG/DL (70-105); POTASSIUM 4.3 MMOL/L (3.6-5.0); SODIUM 134 MMOL/L (135-145); TOTAL PROTEIN 7.4 GM/DL (6.4-8.2)
[2016-11-23] MEDS ORDERED: NS 100 ML (IVPB) BAG IV ONE (12:45)
[2016-11-23] MEDS ORDERED: IOHEXOL 350 MG/ML 100 ML (OMNIPAQUE 350) VIAL IV ONE (12:45)
[2016-11-23] MEDS ORDERED: fentaNYL INJECTION 100 MCG/2 ML AMP IVP ONE (13:30)
--- NOTE | 2016-11-23 13:37 | Diagnostic Imaging Report ---
PROCEDURE: CT head without contrast. TECHNIQUE: Multiple contiguous axial images were obtained through the brain without the use of intravenous contrast. INDICATION: Dizzy. COMPARISON: 08/17/2016. FINDINGS: There is age-related cerebral volume loss and chronic small vessel ischemic changes. No midline shift or mass effect is seen. There is no hemorrhage or evidence of acute ischemia. The bony calvarium is visualized. The paranasal sinuses and mastoids are normal. IMPRESSION: No acute intracranial abnormalities. Dictated by: Dictated on workstation # [id number]
--- NOTE | 2016-11-23 13:41 | Diagnostic Imaging Report ---
PROCEDURE: CT chest, abdomen, and pelvis with contrast. TECHNIQUE: Multiple contiguous axial images were obtained through the chest, abdomen, and pelvis after the administration of intravenous contrast. INDICATION: Unintentional weight loss. COMPARISON: None. CT CHEST: The heart is prominent without pericardial effusion. Coronary artery calcifications are present. Vascular structures are otherwise normal. There is no mediastinal, hilar or axillary lymphadenopathy. Pleural-based calcifications are seen anteriorly. Chronic interstitial changes are seen throughout both lungs. There was no mass, nodular infiltrate or effusion seen. Osseous structures are age-appropriate IMPRESSION: 1. Likely benign pleural-based calcifications. 2. Cardiac enlargement with coronary artery disease. 3. No neoplasia identified CT ABDOMEN / PELVIS: Bilateral benign renal cysts are present. The liver, gallbladder, spleen, pancreas and adrenal glands are otherwise unremarkable. There was no mass or lymphadenopathy. Vascular structures appear grossly unremarkable. There is moderate constipation without obstruction or ileus. Course and caliber of the visualized small bowel, normal. The distal ureters and urinary bladder are normal. There is no inflammatory process. Degenerative changes seen throughout the disc spaces and facet joints. There is right convexity lumbar scoliosis. Severe degenerative changes involving both hips. IMPRESSION: 1. Benign renal cysts 2. Constipation without obstruction or ileus. 3. No CT evidence of neoplasm or inflammatory process. Dictated by: Dictated on workstation # [id number]
--- NOTE | 2016-11-23 14:29 | History & Physical-Hospitalist ---
HPI History of Present Illness: HPI/Chief Complaint this is an 86-year-old white male who presents to the emergency room with increased confusion and disorientation. This is evidently been a problem since been coming on over the last 3 or 4 months. Antecedent to this he has been working and in a very good functional status. He has recently had his car taken away because of the increased confusion. He complains of pain all over and the fact that he just now had surgery. Even though he seems to be disoriented he does remember my name approximately 15 minutes after I introduced myself.he notes that he's been losing weight despite the fact that he 's been eating everything. he was about 2 years ago and has been living at [facility] in [facility] for approximately the last 9 months. Source: patient Exam Limitations: clinical condition Date Seen 11/23/16 Time Seen by Provider: 13:45 Attending Physician Ramila Moss MD PCP Chemo Crawford MD Referring Physician Date of Admission Nov 23, 2016 at 14:08 Home Medications & Allergies Home Medications Reviewed patient Home Medication Reconciliation Form Allergies Allergies Coded Allergies No Known Drug Allergies (Unverified08/17/16) Past Phfpvvj-Rptpwg-Irpiwv Hx Patient Social History Marrital Status: Employed/Student: retired Alcohol Use: Denies Use Recreational Drug Use: No Smoking Status: Never a Smoker 2nd Hand Smoke Exposure: No Recent Foreign Travel: No Contact w/other who traveled: No Recent Hopitalizations: No Recent Infectious Disease Expo: No Immunizations Up To Date Tetanus Booster (TDap): Unknown Date of Pneumonia Vaccine: May 12, 2015 Seasonal Allergies Seasonal Allergies: No Surgeries HX Surgeries: No Respiratory Hx Respiratory Disorders: No Cardiovascular Hx Cardiovascular Disorders: Yes Cardiac Disorders: High Cholesterol, Hypertension Neurological Hx Neurological Disorders: No Genitourinary Hx Genitourinary Disorders: No Genitourinary Disorders: Prostate Problems Gastrointestinal Hx Gastrointestinal Disorders: No Musculoskeletal Hx Musculoskeletal Disorders: Yes Musculoskeletal Disorders: Arthritis Endocrine Hx Endocrine Disorders: No HEENT HX ENT Disorders: No Cancer Hx Cancer: No Psychosocial Hx Psychiatric Problems: No Integumentary HX Skin/Integumentary Disorder: No Reviewed Nursing Assessment Reviewed/Agree w Nursing PMH: Yes Family Medical History Significant Family History: No Pertinent Family Hx Family Hx: Patient reports no known family medical history. Review of Systems Constitutional: no symptoms reported EENTM: no symptoms reported Respiratory: no symptoms reported Cardiovascular: no symptoms reported Gastrointestinal: no symptoms reported Genitourinary: hesitancy Musculoskeletal: back pain, joint pain, muscle pain, muscle stiffness Skin: no symptoms reported Psychiatric/Neurological: Other (confused) Physical Exam Physical Exam Vital Signs Vital Sign - Last 12Hours 11/23/16 10:35 Temp 99.6 Pulse 73 Resp 16 B/P (MAP) 131/71 Pulse Ox 96 O2 Delivery Room Air Capillary Refill : Less Than 3 Seconds General Appearance: Anxious, Moderate Distress HEENT: Normal ENT Inspection Neck: Full Range of Motion, Supple Respiratory: Lungs Clear, Normal Breath Sounds, No Accessory Muscle Use, No Respiratory Distress Cardiovascular: Systolic Murmur, Gallop/S3, Irregularly Irregular Gastrointestinal: No Organomegaly, Non Tender, Soft Rectal: Deferred Back: Normal Inspection Extremity: Pedal Edema, Other (good pulses) Neurologic/Psychiatric: Alert, Other (oriented to person and place) Skin: Normal Color Results Results/Procedures Lab Laboratory Tests 11/23/16 11:58 Assessment/Plan Admission Diagnosis acute on chronic mental status change. 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 No evidence of normal pressure hydrocephalus. CT chest abdomen pelvis is unrevealing except for a renal cyst that remains unchanged. He does have a monocytosis and as such we'll check a syphilis antibody test. In addition will check B12 recheck his thyroid levels.his EKG shows a left bundle branch block and a fairly poorly defined P waves of at all. We'll obtain an echocardiogram and place him on telemetry. RAMILA MOSS MD Nov 23, 2016 14:29
[2016-11-23] MEDS ORDERED: KETOROLAC 30 MG/ML VIAL IM NR (15:30)
[2016-11-23 15:52] VITALS: BP 161/60
[2016-11-23 16:34] LABS: ABG BASE EXCESS 0.4 MMOL/L (-2.5-2.5); ABG HCO3 24 MMOL/L (23-27); ABG OXYGEN SATURATION 95 % (94-100); ABG PCO2 36 MMHG (35-45); ABG PH 7.44 (7.37-7.43); ABG PO2 70 MMHG (79-93); ABG TCO2 25.3 MMOL/L (21.0-31.0)
[2016-11-23 16:37] LABS: ALLENS TEST YES-POS; PATIENT TEMP 98.2
[2016-11-23 20:00] VITALS: BP 121/58
[2016-11-24 05:00] VITALS: BP 136/63
[2016-11-24 08:00] VITALS: BP 127/67
[2016-11-24 11:58] VITALS: BP 132/68
--- NOTE | 2016-11-24 12:06 | Progress Note-Hospitalist ---
Subjective HPI/CC On Admission Date Seen by Provider: Nov 24, 2016 Time Seen by Provider: 11:00 this is an 86-year-old white male who presents to the emergency room with increased confusion and disorientation. This is evidently been a problem since been coming on over the last 3 or 4 months. Antecedent to this he has been working and in a very good functional status. He has recently had his car taken away because of the increased confusion. He complains of pain all over and the fact that he just now had surgery. Even though he seems to be disoriented he does remember my name approximately 15 minutes after I introduced myself.he notes that he's been losing weight despite the fact that he 's been eating everything. he was about 2 years ago and has been living at [facility] in [facility] for approximately the last 9 months. Subjective/Events-last exam patient has become increasingly more confused overnight. It appears that he may have been in A. fib intermittently as P waves cannot be identified on telemetry. I had the same difficulty on his EKG.he has been afebrile. Thyroid was within normal limits. B12 VDRL tick panel are pending. The patient is not oriented to person place or time. He had been yesterday Review of Systems Neurological: Confusion Objective Exam Vital Signs Vital Sign - Last 12Hours 11/23/16 10:35 Temp 99.6 Pulse 73 Resp 16 B/P (MAP) 131/71 Pulse Ox 96 O2 Delivery Room Air Capillary Refill : Less Than 3 Seconds General Appearance: Other (confused) HEENT: Normal ENT Inspection Neck: Non Tender, Supple Respiratory: Lungs Clear, Normal Breath Sounds, No Accessory Muscle Use, No Respiratory Distress Cardiovascular: Regular Rate, Rhythm, No Murmur Gastrointestinal: No Organomegaly, Non Tender, Soft Rectal: Deferred Back: Normal Inspection Extremity: No Calf Tenderness Skin: Pallor Lymphatic: No Adenopathy Assessment/Plan Assessment and Plan Assess & Plan/Chief Complaint acute on chronic mental status change. 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 No evidence of normal pressure hydrocephalus. CT chest abdomen pelvis is unrevealing except for a renal cyst that remains unchanged. He does have a monocytosis and as such we'll check a syphilis antibody test. In addition will check B12 recheck his thyroid levels.his EKG shows a left bundle branch block and a fairly poorly defined P waves if at all. telemetry is been discontinued secondary to his confusion and ripping his leads off. 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 Will consider a trial of Namenda or Aricept SHAKIRA MOSS MD Nov 24, 2016 12:06
--- NOTE | 2016-11-24 15:12 | Consultation-Cardiology ---
HPI-Cardiology Cardiology Consultation: Date of Consultation 11/24/16 Date of Admission Attending Physician Ramila Smith MD Admitting Physician Chemo Crawford MD Consulting Physician Marlo PINA MD HPI: Time Seen by Provider: 13:00 Chief Complaint: irregular heart rhythm this is a 86-year-old patient who presents from a [facility] with episodes of confusion. It is unclear if in between his episodes of confusion he is lucid. However the patient denies any chest pain, shortness of breath, palpitations. This morning telemetry strip showed difficult to discern P waves therefore cardiology was consulted. Review of Systems-Cardiology Review of Systems Constitutional: No As described under HPI, No no symptoms reported, No chills, No fever, No lightheadedness, No malaise, No tiredness, No weight loss, No weight gain, No other Eyes: No As described under HPI, No no symptoms reported, No blindness, No blurred vision, No contact lenses, No drainage, No decreased acuity, No foreign body sensation, No glasses, No inflammation, No pain, No photophobia, No previous injury, No shadows, No tunnel vision, No other, No vision change Ears/Nose/Throat: No As described under HPI, No no symptoms reported, No chronic hearing loss, No epistaxis, No ear discharge, No ear pain, No loose teeth, No mouth pain, No mouth swelling, No nasal drainage, No nose pain, No recent hearing loss, No throat pain, No throat swelling, No ulcerations, No other Respiratory: No no symptoms reported, No As described under HPI, No cough, No orthopnea, No shortness of breath, No SOB with excertion, No SOB at rest, No stridor, No wheezing, No other Cardiovascular: irregular heart rate Gastrointestinal: No no symptoms reported, No As described under HPI, No abdomen distended, No abdominal pain, No blood streaked bowels, No constipation , No diarrhea, No difficulty swallowing, No nausea, No poor appetite, No poor fluid intake, No rectal bleeding, No vomiting, No other, No nausea/vomiting/ diarrhea, No stool coloration changes Genitourinary: No no symptoms reported, No As described under HPI, No burning, No dysuria, No discharge, No frequency, No flank pain, No hematuria, No incontinence, No pain, No urgency, No other, No urine frequency changes, No urine coloration changes Musculoskeletal: No no symptoms reported, No As describe under HPI, No back pain, No gout, No joint pain, No joint swelling, No muscle pain, No muscle stiffness, No neck pain, No other Skin: No no symptoms reported, No As described under HPI, No change in color, No change in hair/nails, No dryness, No lesions, No lumps, No rash, No other, No skin related problems, No ulcerations, No rash on exposed areas, No ulcerations on exposed areas Psychiatric/Neurological: As described under HPI Hematologic: No no symptoms reported, No As described under HPI, No anemia, No blood clots, No easy bleeding, No easy bruising, No swollen glands, No other, No bleeding abnormalities EZR-Mqcimh-Bdrxth Hx Patient Social History Marrital Status: Employed/Student: retired Alcohol Use: Denies Use Recreational Drug Use: No Smoking Status: Never a Smoker 2nd Hand Smoke Exposure: No Recent Foreign Travel: No Recent Infectious Disease Expo: No Hospitalization with Isolation: Denies Physical Abuse Screen: No Sexual Abuse: No Immunizations Up To Date Tetanus Booster (TDap): Unknown Date of Pneumonia Vaccine: Nov 23, 2013 Past Medical History PMH As described under Assessment. Family Medical History Family History: Patient reports no known family medical history. Allergies and Home Medications Allergies Coded Allergies: No Known Drug Allergies (Unverified , 08/17/16) Home Medications Atenolol 100 Mg Tablet, 100 MG PO DAILY, (Reported) Atorvastatin Calcium 10 Mg Tablet, 5 MG PO DAILY, (Reported) TAKES 1/2 PILL Docusate Sodium 100 Mg Tablet, 100 MG PO BID, (Reported) Finasteride 5 Mg Tablet, 5 MG PO DAILY, (Reported) [place] 3 Polyunsat Fatty Acids 1,000 Mg Cap, 1,000 MG PO DAILY, (Reported) Tramadol HCl 50 Mg Tablet, 100 MG PO Q6H PRN for PAIN, (Reported) TAKES 2 (50MG) TABS Physical Exam-Cardiology Physical Exam Vital Signs/I&O Vital Sign - Last 12Hours 11/24/16 11/24/16 11/24/16 11/24/16 05:00 07:00 08:00 09:00 Temp 98.0 98.8 Pulse 88 89 88 Resp 16 22 B/P (MAP) 136/63 127/67 Pulse Ox 96 94 94 O2 Delivery Room Air Room Air Room Air 11/24/16 11:58 Temp 98.0 Pulse 86 Resp 20 B/P (MAP) 132/68 Pulse Ox 95 O2 Delivery Room Air Intake and Output 11/24/16 00:00 Intake Total 400 ml Output Total 600 ml Balance -200 ml Capillary Refill : Less Than 3 Seconds Constitutional: No appears stated age, No AAO x 3, No apparent distress, No PERRL, No well-developed, No well-nourished, No other HEENT: No PERRL, No normal ENT inspection, No TMs normal, No pharynx normal, No scleral icterus (R), No scleral icterus (L), No pale conjunctivae (R), No pale conjunctivae (L), No photophobia, No TM abnormal (R), No TM abnormal (L), No pharyngeal erythema, No tonsillar exudate, No other, No discharge, No EOMI, No hearing is well preserved, No hard of hearing, No oral hygience is good, No ulceration, No xanthelasmas are seen Neck: No non-tender, No full range of motion, No supple, No normal inspection, No carotid bruit, No limited range of motion, No lymphadenopathy (R), No lymphadenopathy (L), No tender lateral, No tender midline, No thyromegaly, No other, No carotid pulses are 2 + bilaterally, No with good upstrokes Respiratory: chest expansion is symmetric, chest is bilaterally symmetric, lungs clear to percussion, lungs clear to auscultation Cardiovascular: regular rate-rhythm, S1 and S2 Gastrointestinal: No tender, No soft, No round, No distended, No pulsatile mass , No organomegaly, No guarding, No rebound, No tenderness, No hernia, No mass, No audible bowel sounds, No abnormal bowel sounds, No abdominal bruits, No spleenomegaly, No other Rectal: deferred Extremities: No normal range of motion, No non-tender, No normal inspection, No pedal edema, No calf tenderness, No normal capillary refill, No pelvis stable , No calf tenderness, No inflammation, No pedal edema, No slow capillary refill , No swelling, No other, No abrasion, No clubbing, No cyanosis, No ecchymosis, No laceration, No no lower extremity edema bilateral, No significant edema, No tenderness, No wound Neurologic/Psychiatric: alert, normal mood/affect Data Review Labs Laboratory Tests 11/23/16 16:28: Blood Gas Puncture Site R RADIAL, Blood Gas Patient Temperature 98.2, Arterial Blood pH 7.44H, Arterial Blood Partial Pressure CO2 36, Arterial Blood Partial Pressure O2 70L, Arterial Blood HCO3 24, Arterial Blood Total CO2 25.3, Arterial Blood Oxygen Saturation 95, Arterial Blood Base Excess 0.4, Rober Test YES-POS, Blood Gas Ventilator Setting NO, Blood Gas Inspired Oxygen ROOM AIR A/P-Cardiology Assessment/Admission Diagnosis irregular heart rhythm, Confusion Plan this is an elderly gentleman who presented with confusion. Dr. Smith noted possibility of irregular heart rhythm. Cardiology was consulted. I could not find any EKG however reviewed all the telemetry strips from the last 24 hours. 3 strips were available. On one strip the patient has sinus rhythm with wide QRS. On the second strip the patient has sinus rhythm with frequent PACs and PVCs. On the third strip there are no discernible P waves. There is likelihood of paroxysmal atrial fibrillation. The patient got confused last night and removed his telemetry leads. I will recommended the patient reported back on telemetry. Echocardiogram will be recommended. I will also request an EKG. Decision for anticoagulation should be made after thorough discussion with the family. Thank you for your consultation. Please call me if you have any questions. Luis M Pina MD, FACP, FACC, FSCAI, FHRS, CCDS Interventional Cardiology Cardiac Electrophysiology Vascular Medicine and Endovascular Interventions Clinical Quality Measures DVT/VTE Risk/Contraindication: Risk Factor Score Per Nursin RFS Level Per Nursing on Admit: 2=Moderate Marlo PINA MD Nov 24, 2016 3:12 pm
[2016-11-24 15:59] VITALS: BP 130/57
[2016-11-24] MEDS: ACETAMINOPHEN 325 MG TABLET/CAPLET (TYLENOL) PO PRN ×2 (16:40→22:28)
[2016-11-24] MEDS: DONEPEZIL 5 MG (ARICEPT) TAB PO SCH (20:44)
[2016-11-24 23:15] VITALS: BP 125/75
[2016-11-25 08:01] VITALS: BP 122/69
[2016-11-25] MEDS: ACETAMINOPHEN 325 MG TABLET/CAPLET (TYLENOL) PO PRN ×2 (08:33→23:18)
--- NOTE | 2016-11-25 09:41 | Progress Note-Hospitalist ---
Progress Note HPI/CC on Admission this is an 86-year-old white male who presents to the emergency room with increased confusion and disorientation. This is evidently been a problem since been coming on over the last 3 or 4 months. Antecedent to this he has been working and in a very good functional status. He has recently had his car taken away because of the increased confusion. He complains of pain all over and the fact that he just now had surgery. Even though he seems to be disoriented he does remember my name approximately 15 minutes after I introduced myself.he notes that he's been losing weight despite the fact that he 's been eating everything. he was about 2 years ago and has been living at [facility] in [facility] for approximately the last 9 months. Progress Notes/Assess & Plan Date Seen 11/25/16 Time Seen by Provider: 09:30 Diagonsis/Assessment & Plan Patient doing well overall but only has periodic lucid moments and then is so drowsy because he doesn't sleep at night I did speak with granddaughter who is a physician and she has recommended going through DPOA for decisions Will get lumbar puncture to rule out hydrocephalus and spinal fluid analysis Is receiving physical therapy at [place] states Unsure if we can go back to [place]. Spoke to DPOA and he will transition to VCV today and f/u closely with Dr Crawford. Updated DPOA on all results. AFVSS, Pleasant, confused at times, drowsy RRR, CTAB Noted trace edema lower legs Laboratory Tests 11/25/16 09:35 Assessment: Altered mental status likely due to vascular dementia and progression with recent fall Paroxysmal atrial fibrillation captured on telemetry not adequate duration candidate due to falls Severe debility worsened Monocytosis workup in process with VDRL and CSF after lumbar puncture and VDRL blood sample Severe chronic pain of the back status post epidural pain injections Plan: NHP Pain control with Ultram PT/OT LP before DC Dr Crawford is PCP Not an anticoagulation candidate due to falls JACINDA ULRICH DO Nov 25, 2016 09:41
[2016-11-25 09:46] LABS: BASOPHILS % (AUTO) 0 % (0-10); EOSINOPHILS % (AUTO) 0 % (0-10); LYMPHOCYTES # (AUTO) 0.4 X 10^3 (1.0-4.0); LYMPHOCYTES % (AUTO) 3 % (12-44); MEAN CORPUSCULAR HEMOGLOBIN 33 PG (25-34); MEAN CORPUSCULAR HGB CONC 34 G/DL (32-36); MEAN CORPUSCULAR VOLUME 97 FL (80-99); MEAN PLATELET VOLUME 8.8 FL (7.4-10.4); MONOCYTES # (AUTO) 1.6 X 10^3 (0.0-1.0); MONOCYTES % (AUTO) 14 % (0-12); NEUTROPHILS % (AUTO) 83 % (42-75); PLATELET COUNT 394 10^3/uL (130-400); RED CELL DISTRIBUTION WIDTH 13.8 % (10.0-14.5)
[2016-11-25] MEDS ORDERED: DONE5TAB8 PO (09:58)
[2016-11-25] MEDS ORDERED: TRAM50TA2 PO (09:58)
[2016-11-25] MEDS ORDERED: MIRT15TA3 PO (09:59)
[2016-11-25 10:05] LABS: ALANINE AMINOTRANSFERASE 16 U/L (0-55); ALBUMIN 3.5 GM/DL (3.2-4.5); ANION GAP 9 MMOL/L (5-14); ASPARTATE AMINO TRANSFERASE 25 U/L (5-34); BILIRUBIN,TOTAL 1.7 MG/DL (0.1-1.0); BLOOD UREA NITROGEN 9 MG/DL (7-18); BUN/CREATININE RATIO 14; CALCIUM 8.8 MG/DL (8.5-10.1); CARBON DIOXIDE 25 MMOL/L (21-32); CHLORIDE 96 MMOL/L (98-107); CREATININE SERUM 0.66 MG/DL (0.60-1.30); GFR ESTIMATED > 60; GLUCOSE 125 MG/DL (70-105); POTASSIUM 3.5 MMOL/L (3.6-5.0); SODIUM 130 MMOL/L (135-145); TOTAL PROTEIN 6.8 GM/DL (6.4-8.2)
[2016-11-25] MEDS ORDERED: LIDOCAINE 1% INJ 20 ML (XYLOCAINE) VIAL ONE (10:27)
[2016-11-25 10:30] LABS: BAND NEUTROPHILS 1 %; BASOPHILS % (MANUAL) 0 %; EOSINOPHILS % (MANUAL) 0 %; LYMPHOCYTES % (MANUAL) 5 %; NEUTROPHILS % (MANUAL) 85 %
--- NOTE | 2016-11-25 11:43 | Anesthesia-Procedure Note ---
Procedure Start/Stop Time Date of Procedure: Nov 25, 2016 Start Time: 10:30 Stop Time: 11:30 Procedures/Interventions Discussed Risk,Benefits: Yes Patient Consents: Yes Position: Lying, Sitting Sterile Technique: Yes Spinal Needle Used: Other Procedure Notes mulitple attempts in lateral position. severe arthritis. switched to sitting .. positive csf clear. at L3-4. Dr Ling assisted with and finished procedure. opening pressures aborted when switched to sittting. MARGARITA SALEH CRNA Nov 25, 2016 11:43
[2016-11-25 11:52] LABS: APPEARANCE,CSF CLEAR; COLOR,CSF COLORLESS; WHITE BLOOD CELL,CSF 0 CELLS (0-5)
[2016-11-25 12:07] LABS: CSF GLUCOSE 64 MG/DL (50-80); CSF TOTAL PROTEIN 40 MG/DL (15-40)
[2016-11-25 15:01] VITALS: BP 119/58
--- NOTE | 2016-11-25 15:09 | Cardiology Progress Note ---
Cardiology SOAP Progress Note Subjective: No complaints Objective: I&O/Vital Signs Vital Sign - Last 12Hours 11/25/16 11/25/16 08:01 15:01 Temp 98.6 98.9 Pulse 92 86 Resp 20 18 B/P (MAP) 122/69 119/58 Pulse Ox 93 96 O2 Delivery Room Air Room Air Intake and Output 11/25/16 00:00 Intake Total 1250 ml Output Total 500 ml Balance 750 ml Weight (Pounds): 167 Weight (Ounces): 8.0 Weight (Calculated Kilograms): [id number] Constitutional: No appears stated age, No AAO x 3, No apparent distress, No PERRL, No well-developed, No well-nourished, No other Respiratory: chest expansion is symmetric, chest is bilaterally symmetric, lungs clear to percussion, lungs clear to auscultation Cardiovascular: irregularly irregular, S1 and S2 Gastrointestional: No tender, No soft, No round, No distended, No pulsatile mass, No organomegaly, No guarding, No rebound, No tenderness, No hernia, No mass, No audible bowel sounds, No abnormal bowel sounds, No abdominal bruits, No spleenomegaly, No other Extremities: No normal range of motion, No non-tender, No normal inspection, No pedal edema, No calf tenderness, No normal capillary refill, No pelvis stable , No calf tenderness, No inflammation, No pedal edema, No slow capillary refill , No swelling, No other, No abrasion, No clubbing, No cyanosis, No ecchymosis, No laceration, No no lower extremity edema bilateral, No significant edema, No tenderness, No wound Neurologic/Psychiatric: alert, normal mood/affect Results/Procedures: Labs Bad table A/P: Assessment/Dx: Atrial fibrillation, confusion Plan: this is an elderly gentleman who presented with confusion. Dr. Smith noted possibility of irregular heart rhythm. Cardiology was consulted. EKG shows atrial fibrillation with left bundle branch block. The patient is at elevated risk for stroke secondary to atrial fibrillation, however, the decision to start oral anticoagulation therapy should be made after discussing all the pros and cons since the patient is confused and the risk of fall is unclear. For now it is okay to start him on full aspirin. I'll be happy to see the patient as an outpatient and to discuss further with family. Thank you for your consultation. Please call me if you have any questions. Luis M Pina MD, FACP, FACC, FSCAI, FHRS, CCDS Interventional Cardiology Cardiac Electrophysiology Vascular Medicine and Endovascular Interventions Marlo PINA MD Nov 25, 2016 15:09
[2016-11-25] MEDS: DONEPEZIL 5 MG (ARICEPT) TAB PO SCH (20:36)
[2016-11-25 23:19] VITALS: BP 155/79
[2016-11-26 05:28] LABS: BASOPHILS % (AUTO) 0 % (0-10); EOSINOPHILS # (AUTO) 0.1 10^3/uL (0.0-0.3); EOSINOPHILS % (AUTO) 1 % (0-10); LYMPHOCYTES # (AUTO) 0.7 X 10^3 (1.0-4.0); LYMPHOCYTES % (AUTO) 7 % (12-44); MEAN CORPUSCULAR HEMOGLOBIN 32 PG (25-34); MEAN CORPUSCULAR HGB CONC 34 G/DL (32-36); MEAN CORPUSCULAR VOLUME 96 FL (80-99); MONOCYTES # (AUTO) 1.4 X 10^3 (0.0-1.0); MONOCYTES % (AUTO) 15 % (0-12); NEUTROPHILS # (AUTO) 7.5 X 10^3 (1.8-7.8); NEUTROPHILS % (AUTO) 78 % (42-75); PLATELET COUNT 359 10^3/uL (130-400); RED BLOOD COUNT 3.35 10^6/uL (4.35-5.85); RED CELL DISTRIBUTION WIDTH 13.4 % (10.0-14.5); WHITE BLOOD COUNT 9.7 10^3/uL (4.3-11.0)
[2016-11-26 05:49] LABS: ALANINE AMINOTRANSFERASE 15 U/L (0-55); ANION GAP 8 MMOL/L (5-14); ASPARTATE AMINO TRANSFERASE 19 U/L (5-34); BILIRUBIN,TOTAL 1.6 MG/DL (0.1-1.0); BLOOD UREA NITROGEN 8 MG/DL (7-18); BUN/CREATININE RATIO 14; CALCIUM 8.4 MG/DL (8.5-10.1); CARBON DIOXIDE 24 MMOL/L (21-32); CHLORIDE 99 MMOL/L (98-107); CREATININE SERUM 0.57 MG/DL (0.60-1.30); GFR ESTIMATED > 60; GLUCOSE 102 MG/DL (70-105); POTASSIUM 3.7 MMOL/L (3.6-5.0); SODIUM 131 MMOL/L (135-145); TOTAL PROTEIN 5.7 GM/DL (6.4-8.2)
[2016-11-26 08:30] VITALS: BP 100/50
--- NOTE | 2016-11-26 09:14 | Discharge Summary-Hospitalist ---
Diagnosis/Chief Complaint Date of Admission Nov 23, 2016 at 14:58 Date of Discharge Discharge Date: Nov 26, 2016 Admission Diagnosis acute on chronic mental status change. 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 No evidence of normal pressure hydrocephalus. CT chest abdomen pelvis is unrevealing except for a renal cyst that remains unchanged. He does have a monocytosis and as such we'll check a syphilis antibody test. In addition will check B12 recheck his thyroid levels.his EKG shows a left bundle branch block and a fairly poorly defined P waves of at all. We'll obtain an echocardiogram and place him on telemetry. Discharge Diagnosis Assessment: Altered mental status likely due to vascular dementia and progression with recent fall now has more lucid moments than not Paroxysmal atrial fibrillation captured on telemetry not adequate duration candidate due to falls Severe debility worsened needs NH P rather than [place] for now Monocytosis workup in process with VDRL and CSF after lumbar puncture and VDRL blood sample Severe chronic pain of the back status post epidural pain injections Patient doing well overall but only has periodic lucid moments and then is so drowsy because he doesn't sleep at night I did speak with granddaughter who is a physician and she has recommended going through DPOA for decisions Will get lumbar puncture to rule out hydrocephalus and spinal fluid analysis Is receiving physical therapy at [facility] Unsure if we can go back to [place]. Spoke to DPOA and he will transition to [facility] today and f/u closely with Dr Crawford. Updated DPOA on all results. AFVSS, Pleasant, confused at times, drowsy RRR, CTAB Noted trace edema lower legs Laboratory Tests 11/25/16 09:35 Assessment: Altered mental status likely due to vascular dementia and progression with recent fall Paroxysmal atrial fibrillation captured on telemetry not adequate duration candidate due to falls Severe debility worsened Monocytosis workup in process with VDRL and CSF after lumbar puncture and VDRL blood sample Severe chronic pain of the back status post epidural pain injections Plan: NHP Pain control with Ultram PT/OT LP before DC Dr Crawford is PCP Not an anticoagulation candidate due to falls Reason Hospital Visit/Course this is an 86-year-old white male who presents to the emergency room with increased confusion and disorientation. This is evidently been a problem since been coming on over the last 3 or 4 months. Antecedent to this he has been working and in a very good functional status. He has recently had his car taken away because of the increased confusion. He complains of pain all over and the fact that he just now had surgery. Even though he seems to be disoriented he does remember my name approximately 15 minutes after I introduced myself.he notes that he's been losing weight despite the fact that he 's been eating everything. he was about 2 years ago and has been living at [facility] in [place] [facility] for approximately the last 9 months. Note from 11/26/16: Patient is doing much better when I saw him but when medical student Kalpana and 10 minutes earlier he was very confused and lethargic White count now is normal Sodium level is up to 131 Lumbar puncture spinal analysis was negative thus far but some labs pending Has sitter with him due to fall risk [address] [place] may very well just be temporary and may be able to ultimately go back to assisted living [facility] course: Patient had a very long observation course because he was admitted for confusion and a fall but no apparent source for the confusion which required observation status to maintain and not inpatient. Lumbar puncture was obtained spinal fluid analysis was negative and opening pressure was unable to be assessed due to required lying down position. CT scan and all other lab results and testing resulted in no pathology or source for confusion so vascular dementia was presumed patient placed on Aricept and Remeron and maintained on Ultram and Tylenol for chronic back pain and his lucidity episodes were appearing to be more and more frequent giving rise to a possibility of resolution of this confusional status in the near future. Discharge Summary Discharge Physical Examination Allergies: Coded Allergies: No Known Drug Allergies (Unverified , 08/17/16) Vitals & I&Os Vital Signs Date Time Temp Pulse Resp B/P (MAP) Pulse Ox O2 Delivery O2 Flow Rate FiO2 11/25/16 23:19 99.7 99 18 155/79 92 Room Air Hospital Course Labs (last 24 hrs) Bad tablePending Labs Laboratory Tests 11/26/16 05:15: White Blood Count 9.7, Red Blood Count 3.35, Hemoglobin 10.8, Hematocrit 32, Mean Corpuscular Volume 96, Mean Corpuscular Hemoglobin 32, Mean Corpuscular Hemoglobin Concent 34, Red Cell Distribution Width 13.4, Platelet Count 359, Mean Platelet Volume 9.0, Neutrophils (%) (Auto) 78, Lymphocytes (%) (Auto) 7, Monocytes (%) (Auto) 15, Eosinophils (%) (Auto) 1, Basophils (%) (Auto) 0, Neutrophils # (Auto) 7.5, Lymphocytes # (Auto) 0.7, Monocytes # (Auto) 1.4, Eosinophils # (Auto) 0.1, Basophils # (Auto) 0.0, Sodium Level 131, Potassium Level 3.7, Chloride Level 99, Carbon Dioxide Level 24, Anion Gap 8, Blood Urea Nitrogen 8, Creatinine 0.57, Estimat Glomerular Filtration Rate > 60, BUN/ Creatinine Ratio 14, Glucose Level 102, Calcium Level 8.4, Total Bilirubin 1.6, Aspartate Amino Transf (AST/SGOT) 19, Alanine Aminotransferase (ALT/SGPT) 15, Alkaline Phosphatase 78, Total Protein 5.7, Albumin 3.0 Discharge Home Medications: Active Scripts Active Remeron (Mirtazapine) 15 Mg Tab.rapdis 7.5 Mg PO HS 30 Days Aricept (Donepezil HCl) 5 Mg Tablet 5 Mg PO HS 30 Days Tramadol HCl 50 Mg Tablet 100 Mg PO Q6H PRN TAKES 2 (50MG) TABS Reported Fish Oil 1,000 mg Capsule ([place] 3 Polyunsat Fatty Acids) 1,000 Mg Cap 1,000 Mg PO DAILY Stool Softener (Docusate Sodium) 100 Mg Tablet 100 Mg PO BID Finasteride 5 Mg Tablet 5 Mg PO DAILY Atorvastatin Calcium 10 Mg Tablet 5 Mg PO DAILY TAKES 1/2 OF A (10 MG) TABLET Atenolol 100 Mg Tablet 100 Mg PO DAILY Instructions to patient/family Please see electonic discharge instructions given to patient. Clinical Quality Measures DVT/VTE Risk/Contraindication: Risk Factor Score Per Nursin RFS Level Per Nursing on Admit: 2=Moderate JACINDA ULRICH DO Nov 26, 2016 09:14
[2016-11-26 14:37] VITALS: BP 100/50
[2016-11-27 15:32] LABS: EHRLICHIA CHAFFEENSIS G ABY <1:16 (<1:16)
[2016-11-28 06:34] LABS: IGG ROCKY MOUNTAIN SPOTTED FEV <1:16 (<1:16); IGM ROCKY MOUNTAIN SPOTTED FEV <1:10 (<1:10)
[2016-11-28 06:36] LABS: TULAREMIA ANTIBODY <1:20
== END 2016-11-25 09:59 ==
LOC: EDUNIT# 10:21 → ER 10:24 → 4TH 14:08 → UNDOADMOB 14:08 → 4TH 14:33
PROVIDERS: ADMIT Internal Medicine; ATTEND Internal Medicine
DX: R41.82 Altered mental status, unspecified (principal); I48.0 Paroxysmal atrial fibrillation; R53.81 Other malaise; D72.821 Monocytosis (symptomatic); I44.7 Left bundle-branch block, unspecified; I51.7 Cardiomegaly; I25.10 Atherosclerotic heart disease of native coronary artery without angina pectoris; K59.00 Constipation, unspecified; M16.0 Bilateral primary osteoarthritis of hip; R63.4 Abnormal weight loss; N28.1 Cyst of kidney, acquired; R54 Age-related physical debility; R29.6 Repeated falls; Z79.899 Other long term (current) drug therapy
CPT/HCPCS: 36415; 70450; 71260; 74177; 80053; 81000; 82607; 82805; 82945; 83605; 83690; 84153; 84157; 84443; 85007; 85025; 85027; 85652; 86038; 86141; 86592; 86666; 86668; 86757; 86780; 87040; 87070; 87205; 89051; 93005; 93306; 96374; G0378

== ENCOUNTER → 2016-12-13 | Outpatient (CLI) | payer MEDICARE ==
[~2016-12-13] MED LIST changes: +DONE5TAB8 PO; +MIRT15TA3 PO
[2016-12-13 15:50] LABS: BASOPHILS # (AUTO) 0.1 10^3/uL (0.0-0.1); BASOPHILS % (AUTO) 1 % (0-10); EOSINOPHILS # (AUTO) 0.2 10^3/uL (0.0-0.3); EOSINOPHILS % (AUTO) 3 % (0-10); LYMPHOCYTES # (AUTO) 1.1 X 10^3 (1.0-4.0); LYMPHOCYTES % (AUTO) 17 % (12-44); MEAN CORPUSCULAR HEMOGLOBIN 32 PG (25-34); MEAN CORPUSCULAR HGB CONC 33 G/DL (32-36); MEAN CORPUSCULAR VOLUME 99 FL (80-99); MEAN PLATELET VOLUME 8.9 FL (7.4-10.4); MONOCYTES # (AUTO) 0.9 X 10^3 (0.0-1.0); MONOCYTES % (AUTO) 14 % (0-12); NEUTROPHILS # (AUTO) 4.1 X 10^3 (1.8-7.8); NEUTROPHILS % (AUTO) 65 % (42-75); PLATELET COUNT 378 10^3/uL (130-400); RED BLOOD COUNT 3.47 10^6/uL (4.35-5.85); RED CELL DISTRIBUTION WIDTH 13.9 % (10.0-14.5); WHITE BLOOD COUNT 6.4 10^3/uL (4.3-11.0)
[2016-12-13 16:07] LABS: ALANINE AMINOTRANSFERASE 10 U/L (0-55); ALBUMIN 3.2 GM/DL (3.2-4.5); ANION GAP 11 MMOL/L (5-14); ASPARTATE AMINO TRANSFERASE 14 U/L (5-34); BILIRUBIN,TOTAL 0.4 MG/DL (0.1-1.0); BLOOD UREA NITROGEN 13 MG/DL (7-18); BUN/CREATININE RATIO 20; CALCIUM 8.7 MG/DL (8.5-10.1); CARBON DIOXIDE 25 MMOL/L (21-32); CHLORIDE 104 MMOL/L (98-107); CREATININE SERUM 0.65 MG/DL (0.60-1.30); GFR ESTIMATED > 60; GLUCOSE 82 MG/DL (70-105); POTASSIUM 3.5 MMOL/L (3.6-5.0); SODIUM 140 MMOL/L (135-145); TOTAL PROTEIN 6.1 GM/DL (6.4-8.2)
== END ==
LOC: CVS 15:44
PROVIDERS: ATTEND Internal Medicine
DX: I10 Essential (primary) hypertension (principal); J44.9 Chronic obstructive pulmonary disease, unspecified; E11.9 Type 2 diabetes mellitus without complications
CPT/HCPCS: 80053; 85025

== ENCOUNTER → 2017-07-01 | Outpatient (CLI) | payer MEDICARE | LOC: CARD 10:36 | PROVIDERS: ATTEND Internal Medicine Cardiovascular Disease | DX: I48.91 Unspecified atrial fibrillation (principal); I25.10 Atherosclerotic heart disease of native coronary artery without angina pectoris; I44.7 Left bundle-branch block, unspecified; I08.0 Rheumatic disorders of both mitral and aortic valves | CPT/HCPCS: 93306 ==

== ENCOUNTER → 2017-07-02 | Outpatient (CLI) | payer MEDICARE ==
[~2017-07-02] MED LIST changes: +CATHETER FLUSH 10 ML SYR IV PRN; +REGADENOSON 0.4 MG/5 ML SYR (LEXISCAN) IV ONE
[2017-07-02 09:05] VITALS: BP 140/87
--- NOTE | 2017-07-02 15:39 | STRESS TEST ---
DATE OF SERVICE: LEXISCAN MYOVIEW STRESS TEST REPORT REFERRING PHYSICIAN: Dr. Chemo Crawford. Baseline heart rate is 84, baseline blood pressure is 111/90 and baseline EKG is sinus rhythm with left bundle branch block. In summary, the patient was injected with 10.97 mCi of technetium-99 Myoview and the resting images were obtained. Then, the patient received 0.4 mg of Lexiscan followed by 32.3 mCi of technetium-99 Myoview. Throughout the test, there were no EKG changes. The resting and stress images were reviewed and compared in the short axis, horizontal long axis, and vertical long axis views. Review of the images showed diaphragmatic attenuation with fixed defect involving the whole inferior wall, inferoposterior wall and inferolateral wall. There is no stress score, no attenuation correction, diffuse left ventricular hypokinesia involving the inferior wall. Calculated ejection fraction is 28%. CONCLUSION: 1. Dilated left ventricle with diffuse left ventricular hypokinesia, calculated ejection fraction is 28%. 2. Fixed defect involving the inferior wall, inferoposterior wall and inferolateral wall. Job ID: [id number] DocumentID: [id number] Dictated Date: 07/02/2017 14:04:38 Non Licensed Nuclear Equipment Operator Date: 07/02/2017 15:38:39 Dictated By: ADAN CARVAJAL MD
== END ==
LOC: CARD 07:02
PROVIDERS: ATTEND Internal Medicine Cardiovascular Disease
DX: I25.10 Atherosclerotic heart disease of native coronary artery without angina pectoris (principal); I48.91 Unspecified atrial fibrillation; I44.7 Left bundle-branch block, unspecified; I42.9 Cardiomyopathy, unspecified
CPT/HCPCS: 78452; 93017

== ENCOUNTER → 2018-06-14 | Outpatient (CLI) | payer MEDICARE ==
[~2018-06-14] MED LIST changes: -CATHETER FLUSH 10 ML SYR IV PRN; -REGADENOSON 0.4 MG/5 ML SYR (LEXISCAN) IV ONE
[2018-06-14 11:37] LABS: BILIRUBIN,URINE NEGATIVE (NEGATIVE); CLARITY,URINE CLEAR; COLOR,URINE YELLOW; GLUCOSE, URINE (UA) NEGATIVE (NEGATIVE); KETONES,URINE NEGATIVE (NEGATIVE); LEUKOCYTE ESTERASE ,URINE NEGATIVE (NEGATIVE); NITRITE,URINE NEGATIVE (NEGATIVE); PH,URINE 7 (5-9); PROTEIN,URINE NEGATIVE (NEGATIVE); UROBILINOGEN,URINE NORMAL (NORMAL)
[2018-06-14 11:59] LABS: BACTERIA,URINE NEGATIVE /HPF
== END ==
LOC: CVS 11:32
PROVIDERS: ATTEND Internal Medicine
DX: R82.998 Other abnormal findings in urine (principal)
CPT/HCPCS: 81000